=== PATIENT | female | born 1940 | race Caucasian/White ===

== ENCOUNTER → 2016-08-21 | Outpatient (CLI) | payer BC, OTHER ==
[~2016-08-21] MED LIST: EST5 PO; MULT-506 PO; RXC5 PO
--- NOTE | 2016-08-21 11:24 | DIAGNOSTIC IMAGING REPORT ---
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 FINDINGS: Ultrasonographic evaluation of the right abdominal wall with attention to the area of clinical concern was performed. This is performed both in the supine and standing positions. No hernia is visualized. It should be noted that CT scanning would be more sensitive for the detection of a spegelian hernia. IMPRESSION: No hernia is visualized ultrasonographically. Electronically signed by: Lb Garrett M.D. 08/21/2016 11:22 AM Dictated Date/Time: 08/21/2016 11:21 AM
== END | disposition home or self-care (01) ==
LOC: C.ULTR 10:30
PROVIDERS: ATTEND Surgery
DX: K46.9 Unspecified abdominal hernia without obstruction or gangrene (principal)

== ENCOUNTER → 2016-08-30 | Outpatient (CLI) | payer BC, OTHER ==
[~2016-08-30] MED LIST changes: +OPTIRAY 320 IV PRN
--- NOTE | 2016-08-30 14:58 | DIAGNOSTIC IMAGING REPORT ---
ABDOMEN AND PELVIS CT WITH IV AND ORAL CONTRAST CT DOSE: 371.64 mGy.cm HISTORY: Pain K46.9 Hernia Possible spigelian hernia.[id number] TECHNIQUE: Multiaxial CT images of the abdomen and pelvis were performed following the use of intravenous and oral contrast. COMPARISON STUDY: None. FINDINGS: The lung bases are clear. The liver, spleen, gallbladder, pancreas, kidneys, and adrenal glands are within normal limits. No bowel wall thickening or obstruction. The pelvic organs are unremarkable. No suspicious lytic or blastic osseous lesions. IMPRESSION: No significant abnormality identified within the abdomen or pelvis. Electronically signed by: Jassi Quiñonez M.D. 08/30/2016 2:57 PM Dictated Date/Time: 08/30/2016 2:53 PM
== END | disposition home or self-care (01) ==
LOC: C.CTS 14:07
PROVIDERS: ATTEND Physician Assistant
DX: K46.9 Unspecified abdominal hernia without obstruction or gangrene (principal)

== ENCOUNTER → 2016-09-19 | Outpatient (CLI) | payer BC, OTHER ==
[~2016-09-19] MED LIST changes: -OPTIRAY 320 IV PRN
--- NOTE | 2016-09-19 14:59 | DIAGNOSTIC IMAGING REPORT ---
RIGHT HIP UNILATERAL 2 VIEWS CLINICAL HISTORY: Significantly decreased range of motion of both hips. COMPARISON: CT of the abdomen and pelvis August 30, 2016. FINDINGS: Alignment of the right hip is anatomic. There is moderate to severe joint space narrowing of the right hip with extensive osteophytosis and subchondral sclerosis. There is no evidence for avascular necrosis. There is no fracture or suspicious lesion. IMPRESSION: Severe osteoarthritis of the right hip. Electronically signed by: Jim Tanner M.D. 09/19/2016 2:57 PM Dictated Date/Time: 09/19/2016 2:56 PM
--- NOTE | 2016-09-19 15:00 | DIAGNOSTIC IMAGING REPORT ---
LEFT HIP 2 VIEWS HISTORY: Left hip pain. COMPARISON: None. FINDINGS: There is no fracture or dislocation. Soft tissues are unremarkable. Moderate to severe cartilage space narrowing within the left hip. There are marginal osteophytes within the acetabulum and femoral head. There is associated subchondral sclerosis. IMPRESSION: Moderate to severe left hip osteoarthritis. No fractures. Electronically signed by: Kirby Wolff M.D. 09/19/2016 2:58 PM Dictated Date/Time: 09/19/2016 2:57 PM
== END | disposition home or self-care (01) ==
LOC: C.RAD 14:26
PROVIDERS: ATTEND Nurse Practitioner Family
DX: M25.651 Stiffness of right hip, not elsewhere classified (principal); M16.0 Bilateral primary osteoarthritis of hip

== ENCOUNTER → 2016-12-23 | Outpatient (CLI) | payer BC, OTHER ==
[~2016-12-23] MED LIST changes: -RXC5 PO
--- NOTE | 2016-12-23 12:07 | DIAGNOSTIC IMAGING REPORT ---
FLUOROSCOPICALLY GUIDED INTRA-ARTICULAR LEFT HIP STEROID AND ANESTHETIC INJECTION CLINICAL HISTORY: Left hip and knee pain COMPARISON STUDY: Outside radiograph dated 12/17/2016 FLUOROSCOPY TIME: 28 seconds. NUMBER OF FLUOROSCOPIC IMAGES: 1 FINDINGS: A timeout was performed. The risks the procedure were explained the patient informed consent was obtained. The patient was prepped and draped in sterile fashion. The skin was anesthetized with 1% lidocaine. Under fluoroscopic guidance, 20-gauge spinal needle was introduced into the joint capsule left hip. Intra-articular location was documented via the injection of Optiray 300. 2 cc of Celestone and 8 cc of Marcaine were instilled intra-articularly. IMPRESSION: 1. 2 cc of Celestone and 8 cc of Marcaine were intra-articular injected into the left hip. There were no immediate complications . Electronically signed by: Lb Garrett M.D. 12/23/2016 12:05 PM Dictated Date/Time: 12/23/2016 12:03 PM
== END | disposition home or self-care (01) ==
LOC: C.RADBC 11:04
PROVIDERS: ATTEND Orthopaedic Surgery
DX: M16.12 Unilateral primary osteoarthritis, left hip (principal)

== ENCOUNTER 2017-02-14 05:15 | Inpatient (IN) | payer BC, OTHER ==
[2017-01-23 13:20] VITALS: BMI 27.0
--- NOTE | 2017-01-23 13:53 | PAT Medication Instructions ---
Service Date Jan 23, 2017. Current Home Medication List Estradiol (Estradiol), 0.5 MG PO QAM Multivitamin (Multivitamin), 1 TAB PO DAILY Medication Instructions For Your Scheduled Surgery - Hold the following medications the morning of surgery: Multivitamin (Multivitamin), 1 TAB PO DAILY - Take the following medications the morning of surgery with a sip of water OTHERWISE NOTHING TO EAT OR DRINK AFTER MIDNIGHT: Estradiol (Estradiol), 0.5 MG PO QAM If you have any questions please call us at [phone] or [phone] or [phone]
[2017-01-23 14:35] LABS: BASO % 0.6 %; BASO ABS # 0.04 K/uL (0-0.2); COMPLETE YES; EOS % 5.9 %; HEMATOCRIT 42.2 % (37-47); IG% 0.3 %; LYMPH % 30.1 %; LYMPH ABS # 2.08 K/uL (1.2-3.4); MEAN CORPUSCULAR HEMOGLOBIN 30.4 pg (25-34); MEAN CORPUSCULAR HGB CONC 32.7 g/dl (32-36); MEAN PLATELET VOLUME 11.4 fL (7.4-10.4); MONO % 9.8 %; NEUT % 53.3 %; PLATELET COUNT 187 K/uL (130-400); RED BLOOD COUNT 4.54 M/uL (4.2-5.4); WHITE BLOOD COUNT 6.92 K/uL (4.8-10.8)
--- NOTE | 2017-01-23 14:39 | DIAGNOSTIC IMAGING REPORT ---
CHEST 2 VIEWS ROUTINE CLINICAL HISTORY: pat preoperative evaluation COMPARISON STUDY: 10/13/2015 FINDINGS: The bones soft tissues and hemidiaphragms are normal. The cardiomediastinal silhouette is normal. The lungs are clear. The pulmonary vasculature is normal. IMPRESSION: Negative chest. The above report was generated using voice recognition software. It may contain grammatical, syntax or spelling errors. Electronically signed by: Jassi Quiñonez M.D. 01/23/2017 2:37 PM Dictated Date/Time: 01/23/2017 2:37 PM
[2017-01-23 14:40] LABS: URINE APPEARANCE CLOUDY (CLEAR); URINE COLOR DK YELLOW; URINE EPITHELIAL CELL AUTO >30 /lpf (0-5); URINE NITRITE NEG (NEG); URINE SPECIFIC GRAVITY 1.031 (1.000-1.030); UROBILINOGEN NEG (NEG)
[2017-01-23 14:54] LABS: MANUAL MICROSCOPIC REQUIRED? NO; REVIEW REQ? YES; URINE BILIRUBIN NEG (NEG)
[2017-01-23 15:01] LABS: BUN/CREATININE RATIO 21.5 (10-20); CALCIUM 9.4 mg/dl (8.5-10.1); CREATININE 0.81 mg/dl (0.60-1.20); POTASSIUM 4.1 mmol/L (3.5-5.1)
--- NOTE | 2017-02-13 18:34 | HISTORY & PHYSICAL EXAMINATION ---
DATE OF ADMISSION: 02/14/2017 HISTORY AND PHYSICAL ADMISSION NOTE CHIEF COMPLAINT: Primary osteoarthritis of the left hip. HISTORY OF PRESENT ILLNESS: Tena is a pleasant 76-year-old female who presented to my office with complaints of left hip and groin pain. X-rays and clinical examination were diagnostic for primary osteoarthritis of the left hip. After failing extensive conservative treatment, she elected to proceed with a left total hip arthroplasty. PAST MEDICAL HISTORY: Essentially denies. PAST SURGICAL HISTORY: Significant for an appendectomy 45 years ago, hysterectomy 4 years ago and a hernia repair. ALLERGIES: PENICILLIN, ADVIL AND ALEVE. MEDICATIONS: Include estradiol 0.5 mg daily, and a women's multivitamin. FAMILY HISTORY: Noncontributory. SOCIAL HISTORY: She denies any tobacco, alcohol or IV drug use. She remains active. REVIEW OF SYSTEMS: She complains of left hip and groin pain. All other pertinent review of systems is negative. PHYSICAL EXAMINATION: GENERAL: She is awake, alert and oriented x3. She is in no apparent distress. She is very pleasant. HEENT: Pupils equal, round and reactive to light. Extraocular motion intact. Oral mucosa is pink and moist. HEART: Regular rate per radial pulse. LUNGS: Tamie symmetrically bilaterally with no audible breath sounds. ABDOMEN: Soft, nontender, nondistended. MUSCULOSKELETAL: On physical examination of her left hip, she has difficulty lying flat. I can flex her up to about 90 degrees and she has significant pain with forced internal and external rotation of her hip. Her leg lengths are essentially equal and she is neurovascularly intact. IMAGING DATA: X-rays of the left hip and pelvis do show advanced osteoarthritis of the left hip with joint space narrowing and osteophyte formation. IMPRESSION: Primary osteoarthritis of the left hip. PLAN: Will proceed with a Biomet taper lock left total hip arthroplasty. Postoperatively, she will be started on aspirin for DVT prophylaxis and kept in the hospital for postoperative medical management. She will likely be discharged to [facility]. LAMONT
[~2017-02-14] VITALS: Ht 175.3 cm; Wt 79.6 kg
[2017-02-14] VITALS (10 sets, daily range): BP systolic 107–138; BP diastolic 63–85; PULSE 66–78; TEMP 34.7–36.7; O2SAT 96–100; Ht 175.3 cm; Wt 79.6 kg
[2017-02-14] MEDS ORDERED: LACTATED RINGER'S 1000ML 1,000 ML IV SCH (06:00)
[2017-02-14] MEDS ORDERED: LACTATED RINGER'S 1000ML 500 ML IV ONE (06:00)
[2017-02-14] MEDS ORDERED: ROPIVACAINE 5MG/ML 30 ML 150 MG, BUPIVACAINE/EPINEPHR 0.5% MPF 30 ML, KETOROLAC TROMETH... INFIL SCH ×7 (06:00)
[2017-02-14] MEDS ORDERED: VANCOMYCIN INJ 1,250 MG in SODIUM CHLORIDE 0.9% 250ML 250 ML IV SCH ×2 (06:00→18:00)
[2017-02-14] MEDS ORDERED: GABAPENTIN 300 MG CAP PO SCH (06:00)
[2017-02-14] MEDS ORDERED: FAMOTIDINE 20 MG TAB PO SCH (06:00)
[2017-02-14] MEDS ORDERED: LACTATED RINGER'S 1000ML IV SCH (06:00)
[2017-02-14] MEDS ORDERED: ACETAMINOPHEN 500 MG TAB PO SCH (06:00)
[2017-02-14] MEDS ORDERED: BUPIVACAINE 0.5 % 5 MG/1 ML PF 10ML VIAL ONE (06:16)
[2017-02-14] MEDS: TRANEXAMIC ACID INJ 1,000 MG in SODIUM CHLORIDE 0.9% 100ML 100 ML IV SCH ×2 (06:30→06:53)
[2017-02-14] MEDS ORDERED: MIDAZOLAM HCL 1 MG/ML 2ML VIAL ONE (06:46)
--- NOTE | 2017-02-14 06:51 | History & Physical Bridge Note ---
H&P Re-Evaluation Bridge Note: I have examined the patient, reviewed the History & Physical and in the interval since the performance of the History & Physical I have noted the following changes of clinical significance: No changes noted
[2017-02-14] MEDS ORDERED: ORTHO JOINT ANESTHETIC ONE (07:05)
[2017-02-14] MEDS ORDERED: BACITRACIN 50000 UNIT VIAL ONE (07:05)
[2017-02-14] MEDS ORDERED: PROPOFOL IV EMULSION 10 MG/ML 20 ML VIAL IV ONE ×2 (07:54→08:52)
[2017-02-14] MEDS ORDERED: LIDOCAINE HCL 2% 2 ML VIAL (20MG/ML) ONE (07:54)
[2017-02-14] MEDS ORDERED: PHENYLEPHRINE HCL INJ 10 MG/ML VIAL ONE (07:54)
[2017-02-14] MEDS ORDERED: EpHEDrine SULFATE 50MG/5ML SYR ONE (08:04)
[2017-02-14] MEDS ORDERED: ALBUMIN HUMAN 5% 12.5 GM/250 ML VIAL IV ONE ×2 (08:22→09:04)
[2017-02-14] MEDS ORDERED: ONDANSETRON INJ 2 MG/ML 2 ML VIAL IV PRN ×2 (09:30→09:45)
[2017-02-14] MEDS ORDERED: PROMETHAZINE HCL INJ 12.5 MG in SODIUM CHLORIDE 0.9% 50ML 50 ML IV PRN (09:30)
[2017-02-14] MEDS ORDERED: NALOXONE HCL 0.4 MG/1 ML VIAL/CARP IV PRN (09:30)
[2017-02-14] MEDS ORDERED: FLUMAZENIL 0.1 MG/1 ML 10 ML VIAL IV PRN (09:30)
[2017-02-14] MEDS ORDERED: EpHEDrine SULFATE INJ 50 MG/ML AMP IV PRN (09:30)
[2017-02-14] MEDS ORDERED: ATROPINE SULFATE 0.1 MG/ML 5ML SYR IV PRN (09:30)
--- NOTE | 2017-02-14 09:36 | [facility] Post Operative Brief Note ---
Immediate Operative Summary Operative Date Feb 14, 2017. Pre-Operative Diagnosis Primary osteoarthritis of the left hip Post-Operative Diagnosis Primary osteoarthritis of the left hip Procedure(s) Performed Left Anterior Total Hip Arthroplasty Surgeon Dr. Jesus Eller Loss Prevention/Safety District Manager Surgeon(s) Ulices Bhatt PA-C Estimated Blood Loss 300cc Findings as above Specimens A. Left femoral head Complication(s) None Disposition Recovery Room / PACU
[2017-02-14] MEDS ORDERED: SILVER SULFADIAZINE 1% CR 50 GM JAR EXT PRN (09:45)
[2017-02-14] MEDS ORDERED: MoRPHine SULFATE 2 MG/ML CARP IV PRN (09:45)
[2017-02-14] MEDS ORDERED: OXYCODONE HCL IR 5 MG TAB (IMMEDIATE RELEASE) PO PRN (09:45)
[2017-02-14] MEDS ORDERED: METOCLOPRAMIDE HCL INJ 5 MG/ML 2 ML VIAL IV PRN (09:45)
[2017-02-14] MEDS ORDERED: BISACODYL 10 MG SUPP PR PRN (09:45)
[2017-02-14] MEDS ORDERED: MAGNESIUM HYDROXIDE SUSP 30 ML UDC PO PRN (09:45)
[2017-02-14] MEDS ORDERED: SOD PHOSPHATE/SOD BIPHOSPHATE ENEMA 132 ML BTL PR PRN (09:45)
--- NOTE | 2017-02-14 09:59 | OPERATIVE REPORT ---
DATE OF OPERATION: 02/14/2017 PREOPERATIVE DIAGNOSIS: Primary osteoarthritis of the left hip. POSTOPERATIVE DIAGNOSIS: Same. PROCEDURE: Left total hip arthroplasty. SURGEON: Dr. Jesus Eller. MACHINIST CLASS B: Stew Bhatt PA-C, whose assistance was necessary for positioning of the leg and helping with retraction and closure. ANESTHESIA: Spinal. COMPLICATIONS: None. CONDITION: Stable to PACU. IMPLANTS USED: I used a Biomet Taperloc total hip arthroplasty system with a size 50 G7 cup with a single 30-mm screw, a 50 G7 E1 neutral E-poly liner, size 12 high offset Taperloc stem and a 36 ceramic head with a -6 neck. INDICATIONS: Tena is a pleasant 76-year-old female who presented to my office with complaints of left groin and left knee pain. X-rays of the left hip and the knee showed severe osteoarthritis of the left hip and no arthritis of the left knee. She elected to proceed with a left total hip arthroplasty. DESCRIPTION OF PROCEDURE: On 02/14/2017, she arrived at [facility] for the above procedure. She was seen in the preoperative holding area and the operative extremity was identified and signed. She was given a preoperative antibiotic and a spinal anesthetic. She was taken back to the operating room, laid on the table in the supine position, and given basic sedation. The left hip was then brought out to a Purist leg positioner. The left hip was then prepped and draped in sterile fashion. Time-out was done and the patient and operative extremity was properly identified. An anterior approach was used. Dissection was taken down through the tensor and the tensor muscle was retracted laterally and the rectus was retracted medially. The capsule was then incised and tagged for later repair. The femoral neck was then resected and the femoral head was removed. The acetabulum was exposed. Time was spent doing a labral release. Sequential reaming up to a size 49 reamer was done. Reaming was done under fluoroscopy to ensure appropriate version. A size 50 pressfit cup was then impacted into place. A single 30-mm screw was placed and the E1 neutral poly liner was then snapped into place. The proximal femur was then exposed. Sequential broaching up to a size 13 broach was done. A standard head and neck assembly was applied and the hip was reduced. I was happy with the overall fit and length. The broach was removed. A size 13 implant was then impacted into place; however, I was unable to impact the final implant as far as I was able to get that broach, I felt I was going to split calcar if I kept going on any further. Decision was made to downsize to a size 12. A femoral stem was wasted and a size 12 Taperloc stem was then impacted into place. I was very happy with the fit of the smaller stem. Several different heads were trialed and a -6 seemed to be the best fit. The hip was reduced and fluoroscopic images showed anatomic alignment and protestant of leg lengths. The surrounding soft tissues were injected with 100 mL of an orthopedic pain control cocktail. The knee was then irrigated with 3 liters of normal saline solution with bacitracin. The capsule was then closed with #1 Vicryl and the drain was placed. Fascia was closed with #1 PDS and skin was closed with 2-0 Vicryl, 3-0 V-Loc suture and chong. She was then placed on a hospital bed and taken to the postanesthesia care unit in stable condition. She tolerated the procedure well. I attest to the content of the Intraoperative Record and any orders documented therein. Any exceptions are noted below. LAMONT
--- NOTE | 2017-02-14 10:55 | Anesthesiology Progress Note ---
Anesthesia Post Op Note Date & Time Feb 14, 2017 at 10:55 Vital Signs Pain Intensity: 0 Vital Signs Past 12 Hours Date Time Temp Pulse Resp B/P (MAP) Pulse Ox O2 Delivery O2 Flow Rate FiO2 02/14/17 10:45 124/70 02/14/17 10:43 72 21 100 02/14/17 10:43 72 21 02/14/17 10:41 116/67 02/14/17 10:38 71 16 100 02/14/17 10:38 72 16 02/14/17 10:36 121/68 02/14/17 10:33 69 19 100 02/14/17 10:33 69 19 02/14/17 10:31 123/68 02/14/17 10:28 69 18 02/14/17 10:28 69 18 100 02/14/17 10:27 66 19 100 02/14/17 10:27 66 19 02/14/17 10:26 115/65 02/14/17 10:22 68 18 02/14/17 10:22 68 18 100 02/14/17 10:21 119/66 02/14/17 10:17 69 20 02/14/17 10:17 71 20 100 02/14/17 10:16 120/58 02/14/17 10:13 64 18 100 02/14/17 10:13 64 18 02/14/17 10:11 117/68 02/14/17 10:08 63 24 100 02/14/17 10:08 64 24 02/14/17 10:06 96/63 02/14/17 10:03 64 23 02/14/17 10:03 63 23 100 02/14/17 10:01 113/64 02/14/17 09:58 64 17 02/14/17 09:58 84 17 100 02/14/17 09:56 113/64 02/14/17 09:53 23 02/14/17 09:53 36.4 73 20 123/70 97 Nasal Cannula 2 02/14/17 09:53 70 23 123/70 02/14/17 05:51 36.7 68 18 119/84 96 Room Air Notes Mental Status: alert / awake / arousable, participated in evaluation Pt Amnestic to Procedure: Yes Nausea / Vomiting: adequately controlled Pain: adequately controlled Airway Patency, RR, SpO2: stable & adequate BP & HR: stable & adequate Hydration State: stable & adequate Anesthetic Complications: no major complications apparent
--- NOTE | 2017-02-14 12:35 | DIAGNOSTIC IMAGING REPORT ---
L PELVIS/UNILATERAL HIP 1 VIEW HISTORY: 76 years-old Female IN PACU - A/P PELVIS and LATERAL HIP INCLUDING ALL OF IMPLANT status post left hip arthroplasty COMPARISON: left hip radiographs of same day at 7:22 AM TECHNIQUE: AP view the pelvis with frog-leg view of the left hip FINDINGS: Status post left hip arthroplasty with satisfactory alignment. Expected soft tissue swelling and deep tissue air is noted about the left hip. Skin chong are present with surgical drain. Moderate right hip and pubic symphysis degenerative changes. No acute fracture or dislocation. IMPRESSION: Status post left total hip arthroplasty without complication. The above report was generated using voice recognition software. It may contain grammatical, syntax or spelling errors. Electronically signed by: Arnav Matias M.D. 02/14/2017 12:34 PM Dictated Date/Time: 02/14/2017 10:22 AM
--- NOTE | 2017-02-14 12:52 | DIAGNOSTIC IMAGING REPORT ---
L HIP UNILATERAL 1 VIEW HISTORY: 76 years-old Female LT ANTERIOR TOTAL status post left hip arthroplasty COMPARISON: Pelvis and left hip radiographs of same day TECHNIQUE: 4 spot fluoroscopic images of the left hip were obtained utilizing 79.1 seconds fluoroscopy time FINDINGS: First image demonstrates acetabular component of left hip arthroplasty in satisfactory position with a single cannulated screw noted projected superiorly. There has been surgical resection of the femoral head and neck. Second through fourth images demonstrate the femoral stem of the arthroplasty in place with satisfactory alignment. No periprosthetic fracture identified. Expected soft tissue swelling and deep tissue air about the left hip. IMPRESSION: Fluoroscopic assistance as above. Please see operative report for further details. The above report was generated using voice recognition software. It may contain grammatical, syntax or spelling errors. Electronically signed by: Arnav Matias M.D. 02/14/2017 12:51 PM Dictated Date/Time: 02/14/2017 12:50 PM
[2017-02-14] MEDS: SODIUM CHLORIDE 0.9% 1000ML 1,000 ML IV SCH ×2 (13:10→21:18)
[2017-02-14] MEDS: ACETAMINOPHEN IV 1,000 MG in EMPTY BAG 0 ML IV SCH ×2 (15:21→23:58)
[2017-02-14] MEDS: DOCUSATE SODIUM 100 MG CAP PO SCH (21:18)
[2017-02-14] MEDS: SENNA 8.6 MG TAB PO SCH (21:18)
[2017-02-14] MEDS: ASPIRIN 325 MG ECTAB PO SCH (21:18)
--- NOTE | 2017-02-14 22:51 | Discharge Instructions ---
Discharge Instructions Date of Service Feb 14, 2017. Admission Reason for Admission: Left Hip Degenerative Joint Disease Discharge Discharge Diagnosis / Problem: Left Total Hip Discharge Goals Goal(s): Decrease discomfort, Improve function Activity Recommendations Activity Limitations: as noted below . Instructions / Follow-Up Instructions / Follow-Up Activity and Therapy Recommendations: * If you are using [facility] then Physical Therapy will be provided until they feel you are ready to start Outpatient Physical Therapy. If you are not using a Home Health agency then Outpatient Physical Therapy should start about 3-5 days from your day of surgery. Therapy will last about 3-6 weeks * You were shown a series of exercises in the hospital. Do these exercises three times each day including the exercises you were shown in physical therapy. * Get up and walk several times each day.~ For the first four weeks, try not to stand or walk for more than one hour at a time. If you do stand or walk for more than one hour, you will not hurt anything, but your leg will likely swell.~ ~ * As you feel comfortable, you may change from the walker or crutches to a cane and~then to independent walking. Medications: * Narcotic You will likely be sent home from the hospital with a prescription for the narcotic pain medication that worked best throughout your stay. * Aspirin Most patients will be required to take Aspirin 325mg twice a day for 6 weeks after surgery. This is obtained [id number] and a prescription is not necessary. * Other medications may be prescribed for specific circumstances. If you have any questions, please call the office at . * Resume previous home medications unless otherwise instructed TEDs/Elastic Stockings: The white elastic stockings help limit swelling and prevent blood clots from forming in your legs. The more you wear them, the more they work. Wear them for six weeks. Showering: You may shower 5 days from the day of surgery. Let the soapy shower water run over the chong. Do not scrub or soak the incision. Things To Watch For: * Drainage from the incision site that occurs more than one week after your surgery. * Increased redness at the incision site. * Fever above 102 degrees Fahrenheit. * Unusual chest pain or shortness of breath. * Call [facility] at with any of the above problems Follow-Up Visit: Follow-up with Dr. Eller 2-3 weeks after your day of surgery. An appointment was probably scheduled when you signed-up for surgery in the office. If you have any questions call Office Instructions: More detailed instructions as well as Frequently Asked Questions were provided in a folder by our office when you signed-up for surgery. Please review these instructions when you get home. If you have any further questions or concerns, please feel free to call the office at [phone] Current Hospital Diet Patient's current hospital diet: Regular Diet Discharge Diet Recommended Diet: Regular Diet Procedures Procedures Performed: Left Anterior Total Hip Arthroplasty Pending Studies Studies pending at discharge: no Medical Emergencies . Who to Call and When: Medical Emergencies: If at any time you feel your situation is an emergency, please call [phone] immediately. . Non-Emergent Contact Non-Emergency issues call your: Surgeon Call Non-Emergent contact if: wound has increased drainage, wound has increased redness (Aspirin 325 twice a day for 6 weeks) . "Provider Documentation" section prepared by Jesus Eller. . VTE Core Measure Inpt VTE Proph given/why not?: Other Anticoagulation (Aspirin 325 twice a day for 6 weeks)
[2017-02-15 03:05] VITALS: BP 118/67; PULSE 72; TEMP 36.5; O2SAT 96
[2017-02-15] MEDS: SODIUM CHLORIDE 0.9% 1000ML 1,000 ML IV SCH (07:08)
[2017-02-15 07:33] VITALS: BP 123/56; PULSE 81; TEMP 36.8; O2SAT 98
[2017-02-15 07:50] LABS: BASO % 0.3 %; BASO ABS # 0.03 K/uL (0-0.2); COMPLETE YES; EOS % 0.5 %; HEMATOCRIT 30.8 % (37-47); IG% 0.3 %; LYMPH % 13.9 %; LYMPH ABS # 1.65 K/uL (1.2-3.4); MEAN CELL VOLUME 91.9 fL (80-100); MEAN CORPUSCULAR HEMOGLOBIN 29.6 pg (25-34); MEAN CORPUSCULAR HGB CONC 32.1 g/dl (32-36); MEAN PLATELET VOLUME 11.4 fL (7.4-10.4); MONO % 8.3 %; NEUT % 76.7 %; PLATELET COUNT 129 K/uL (130-400); RED BLOOD COUNT 3.35 M/uL (4.2-5.4); WHITE BLOOD COUNT 11.91 K/uL (4.8-10.8)
[2017-02-15 08:14] LABS: BUN/CREATININE RATIO 18.3 (10-20); CALCIUM 8.2 mg/dl (8.5-10.1); CREATININE 0.6 mg/dl (0.60-1.20); POTASSIUM 3.9 mmol/L (3.5-5.1)
[2017-02-15] MEDS: ASPIRIN 325 MG ECTAB PO SCH ×2 (09:08→21:13)
[2017-02-15] MEDS: MULTIVITAMIN TAB PO SCH (09:08)
[2017-02-15] MEDS: ACETAMINOPHEN IV 1,000 MG in EMPTY BAG 0 ML IV SCH (09:08)
[2017-02-15] MEDS: ESTRADIOL 1 MG TAB PO SCH (09:08)
[2017-02-15] MEDS: DOCUSATE SODIUM 100 MG CAP PO SCH ×2 (09:08→21:00)
[2017-02-15] MEDS: PANTOprazole SOD 40 MG TAB PO SCH (09:09)
--- NOTE | 2017-02-15 10:04 | PROGRESS NOTE ---
DATE: 02/15/2017 CHIEF COMPLAINT: Status post left total hip arthroplasty, postop day #1 in progress. SUBJECTION: Tena was seen and examined at bedside today. Overall, she is doing very well. She said she has a very little pain in her left hip. She was up and ambulating last night and this morning. She has no complaints. PHYSICAL EXAMINATION: LEFT HIP: The dressing is clean and dry and the drain is to suction. Her leg lengths are essentially equal. She has good sensation on her quads. She has active dorsiflexion and plantarflexion of her left ankle. LABORATORY DATA: She has an H&H today of 9.9 and . Her glucose is 105. Her vital signs are all stable on room air. She is voiding on her own. X-rays postoperatively of the left hip showed the prosthesis to be in anatomical alignment without any evidence of fracture, dislocation or loosening. IMPRESSION: Status post left total hip arthroplasty, postop day #1. PLAN: At this point, she is doing very well and happy with the progress. She is on aspirin for DVT prophylaxis. Therapy will get her up and have her ambulating more today. Tomorrow morning, the nursing staff can change the dressing, pull the drain and she is looking for discharge to [facility].
[2017-02-15 11:39] VITALS: BP 100/56; PULSE 76; TEMP 36.8; O2SAT 98
[2017-02-15 16:06] VITALS: BP 103/58; PULSE 78; TEMP 36.7; O2SAT 96
[2017-02-15] MEDS: SENNA 8.6 MG TAB PO SCH (21:00)
[2017-02-15] MEDS: ACETAMINOPHEN 500 MG TAB PO SCH (21:13)
[2017-02-15 22:54] VITALS: BP 109/58; PULSE 77; TEMP 37.1; O2SAT 96
[2017-02-16] MEDS: ACETAMINOPHEN 500 MG TAB PO SCH ×2 (05:23→14:21)
[2017-02-16 07:09] VITALS: BP 142/67; PULSE 86; TEMP 36.8; O2SAT 92
[2017-02-16] MEDS: PANTOprazole SOD 40 MG TAB PO SCH (08:32)
[2017-02-16] MEDS: DOCUSATE SODIUM 100 MG CAP PO SCH (08:32)
[2017-02-16] MEDS: MULTIVITAMIN TAB PO SCH (08:32)
[2017-02-16] MEDS: ESTRADIOL 1 MG TAB PO SCH (08:33)
[2017-02-16] MEDS: ASPIRIN 325 MG ECTAB PO SCH (08:33)
[2017-02-16] MEDS ORDERED: RXC5 PO (09:46)
--- NOTE | 2017-02-16 09:58 | PROGRESS NOTE ---
DATE: 02/16/2017 CHIEF COMPLAINT: Status post left total hip arthroplasty, postop day #2. PROGRESS: Tena was seen and examined at bedside today. Overall, she is doing very well. She just finished with physical therapy. She has minimal pain in her left hip. She has no complaints. PHYSICAL EXAMINATION: LEFT HIP: The dressing has been changed and drain has been pulled. The incision is clean and dry. She has active dorsiflexion and plantarflexion of her left ankle. Her leg lengths are equal. IMPRESSION: Status post left total hip arthroplasty, postop day #2. PLAN: At this point, she is doing well. She is on aspirin for DVT prophylaxis. Her pain is well controlled. She is orthopedically stable for discharge to [facility] later today.
[2017-02-16 11:14] VITALS: BP 142/67; PULSE 86; O2SAT 92
[2017-02-16 11:45] VITALS: BP 142/67; PULSE 86; TEMP 36.8; O2SAT 92
--- NOTE | 2017-02-17 17:19 | DISCHARGE SUMMARY ---
DISCHARGE DIAGNOSIS: Primary osteoarthritis of the left hip. PROCEDURE: Left total hip arthroplasty on 02/14/[address] Jesus Eller. DISCHARGE INSTRUCTIONS: 1. Oxycodone 5-10 mg every 4 hours as needed for pain. 2. Aspirin 325 mg twice a day for DVT prophylaxis. 3. ESTEBAN hose stockings for 6 weeks. 4. Follow up with Dr. Eller in 2 weeks. 5. Call the office of Dr. Eller with any questions or concerns. HOSPITAL COURSE: Tena is a very pleasant 76-year-old female who presented to my office with complaints of chronic left hip and knee pain. X-rays and clinical examination were diagnostic for primary osteoarthritis of the left hip. After failing conservative treatment, she elected to undergo a left total hip arthroplasty. On 02/14/2017 she arrived at [facility] and underwent a left hip replacement without complications. She had a spinal anesthetic. Postoperatively, she was discharged to general orthopedic floors. Her hospital course was uneventful. On postop day #1, her H&H was stable at 9.9 and 30.8. She was up and ambulating well with physical therapy. She did not have much pain in the hip. On postop day #2, the nursing staff changed the dressing and pulled the drain. She continued to do very well. Her pain was controlled and she was ambulating well with physical therapy. She was subsequently discharged to [facility] with the above instructions.
== END 2017-02-16 15:01 | DRG 470 ==
LOC: C.ACU 05:15 → C.3E 06:30 → ENRESERV 10:06
PROVIDERS: ADMIT Orthopaedic Surgery; ATTEND Orthopaedic Surgery
PROC: 0SRB04Z Replacement of Left Hip Joint with Ceramic on Polyethylene Synthetic Substitute, Open Approach (ICD-10-PCS; principal; 2017-02-14 07:00)
DX: M16.12 Unilateral primary osteoarthritis, left hip (principal); Z88.0 Allergy status to penicillin

== ENCOUNTER 2017-09-06 11:41 | Emergency (ER) | payer OTHER, BC ==
[~2017-09-06] VITALS: Ht 175.3 cm; Wt 85.6 kg
[~2017-09-06 11:41] MED LIST changes: +RXC5 PO
[2017-09-06 11:45] VITALS: TEMP 36.5; Ht 175.3 cm; Wt 85.6 kg
[2017-09-06] MEDS ORDERED: ASPI81TA28 PO (11:58)
[2017-09-06] MEDS ORDERED: OPTIRAY 320 IV PRN (12:30)
[2017-09-06 12:50] LABS: BASO % 0.6 %; BASO ABS # 0.05 K/uL (0-0.2); EOS % 4.8 %; EOS ABS # 0.39 K/uL (0-0.5); HEMATOCRIT 41.2 % (37-47); HEMOGLOBIN 13.9 g/dL (12.0-16.0); IG# 0.02 K/uL (0.00-0.02); LYMPH % 22.5 %; LYMPH ABS # 1.84 K/uL (1.2-3.4); MEAN CELL VOLUME 90.7 fL (80-100); MEAN CORPUSCULAR HEMOGLOBIN 30.6 pg (25-34); MEAN CORPUSCULAR HGB CONC 33.7 g/dl (32-36); MEAN PLATELET VOLUME 10.9 fL (7.4-10.4); MONO % 10.8 %; MONO ABS # 0.88 K/uL (0.11-0.59); NEUT % 61.1 %; NEUT ABS # 4.98 K/uL (1.4-6.5); PLATELET COUNT 175 K/uL (130-400); RED CELL DISTRIBUTION WIDTH CV 12.9 % (11.5-14.5); RED CELL DISTRIBUTION WIDTH SD 43.2 fL (36.4-46.3); WHITE BLOOD COUNT 8.16 K/uL (4.8-10.8)
[2017-09-06 13:05] LABS: CALCIUM 8.7 mg/dl (8.5-10.1); CREATININE 0.84 mg/dl (0.60-1.20)
--- NOTE | 2017-09-06 14:09 | EMERGENCY ROOM VISIT NOTE ---
History Report prepared by Tamika: Wilmar Franco Under the Supervision of: Dr. Allen London M.D. First contact with patient: 12:04 Chief Complaint: FACIAL PAIN/INJURY Stated Complaint: SWOLLEN JAW,EAR,TONGUE,NECK History of Present Illness The patient is a 76 year old female with a history of a breast cyst who presents to the Emergency Room with complaints of persistent right-sided facial pain that started yesterday. She states that she noticed right-sided facial swelling after lunch yesterday, and she describes it as a "big egg of swelling" . The patient notes that overnight the swelling moved down the right side of her face and into her neck. The patient says that she feels swelling in her jaw , ear, tongue, and neck. She adds that she has right-sided facial pain which she rates as a 7 out of 10 in severity. The patient says that "everything hurts on the right side from the eyeball down to the bottom of the neck". She states that she took 1 Aspirin last night, and felt feverish last night. The patient says that she was unable to sleep last night due to the pain. She went to [employer] earlier today, and was referred here due to the swelling. The patient was afebrile at the office. She adds that she had her right lower molars done in a dentist office 3 weeks ago. Pt denies LOC, headache, diaphoresis, visual changes, chest pain, breathing difficulties, nausea, vomiting, abdominal pain, back pain, melena, hematochezia, urinary symptoms, numbness, weakness, rash, or other complaints. Source of History: patient Onset: Yesterday Position: other (right side of face) Symptom Intensity: 7/10 pain Quality: other (swelling) Timing: other (persistent) Associated Symptoms: + fevers ("felt feverish last night"), + neck pain Note: No other associated symptoms noted. Review of Systems See HPI for pertinent positives and negatives. A total of ten systems were reviewed and were otherwise negative. Past Medical & Surgical Medical Problems: (1) Breast cyst (2) Lyme disease (3) Osteoarthritis of left hip Surgical Problems: (1) History of appendectomy (2) History of hysterectomy (3) S/P hernia repair Family History Patient reports no known family medical history. Social History Smoking Status: Never Smoker Smokeless Tobacco Use: No Alcohol Use: none Marital Status: Housing Status: lives alone Current/Historical Medications Scheduled Aspirin (Aspirin Ec), 81 MG PO DAILY Clindamycin Hcl (Cleocin), 150 MG PO QID Estradiol (Estradiol), 0.5 MG PO QAM Multivitamin (Multivitamin), 1 TAB PO DAILY Allergies Coded Allergies: Penicillins (Verified Allergy, Unknown, HIVES, 09/06/17) NSAIDs (Unverified Adverse Reaction, Unknown, BLURRED VISION-ALEVE,ADVIL, 09/06/17) Physical Exam Vital Signs Date Time Temp Pulse Resp B/P (MAP) Pulse Ox O2 Delivery O2 Flow Rate FiO2 09/06/17 14:56 70 16 124/63 95 Room Air 09/06/17 11:45 36.5 78 18 128/78 96 Room Air Physical Exam GENERAL: Awake, alert, well-appearing, in no distress HENT: Normocephalic, atraumatic. Tenderness over the right lower jaw, swelling present there. Mild right submandibular swelling. Tongue and floor of mouth are normal. EYES: Normal conjunctiva. Sclera non-icteric. NECK: Tenderness right side of neck. Supple. No nuchal rigidity. FROM. No masses. RESPIRATORY: Clear to auscultation. No wheezes. No rales. Normal respiratory effort. CARDIAC: Normal rate. Normal rhythm. No murmurs. No rubs. Extremities warm and well perfused. Pulses equal. No JVD. GI: Soft, non-distended. No tenderness to palpation. No rebound or guarding. No masses. RECTAL: Deferred. MUSCULOSKELETAL: Atraumatic. Chest examination reveals no tenderness. The back is symmetrical on inspection without obvious abnormality. There is no CVA tenderness to palpation. No joint edema. LOWER EXTREMITIES: Calves are equal size bilaterally and non-tender. No edema. No discoloration. NEURO: Normal sensorium. No sensory or motor deficits noted. SKIN: No rash or jaundice noted. Medical Decision & Procedures ER Provider Diagnostic Interpretation: CT: Radiology results as stated below per my review and radiologist interpretation SOFT TISSUE NECK WITH HISTORY: 76 years-old Female Right facial pain, lower jaw swelling acute right-sided facial pain and swelling COMPARISON: None available TECHNIQUE: Multiple axial CT images of the soft tissues of the neck were obtained following the intravenous administration of 93 mL Optiray 320 IV contrast. A dose lowering technique was used consistent with the principals of ALARA. FINDINGS: Study is limited secondary to streak artifact from dental amalgam hardware. The right parotid gland is asymmetrically larger than the left demonstrates moderate degree of interstitial and periglandular inflammatory stranding. Mild inflammatory stranding tracks along the right development technical lead space and right platysma musculature. The left parotid gland, submandibular and sublingual glands appear unremarkable. Note is of parotid ductal dilation or obstructing sialolith. No drainable fluid collection or opaque foreign body. No pathologic adenopathy. Calcifications of the lingual tonsils. Airway is patent. The glottis and subglottic airway appears unremarkable. 4 mm low attenuating left thyroid nodule. Atherosclerosis of the bilateral carotid bulbs. No acute intracranial abnormality identified. 4 mm solid nodule of the left upper lobe, image 393 series 4. Mild biapical pleural-parenchymal scarring. Mastoid air cells are clear. Minimal mucosal thickening about the ethmoid air cells and maxillary sinuses. Multilevel degenerative changes about the cervical spine with kyphotic curvature of the mid cervical spine. IMPRESSION: 1. Moderate enlargement with interstitial and periglandular inflammatory stranding involving the right parotid gland is compatible with acute parotiditis without ductal dilation or obstructing sialolith identified. 2. No pathologic adenopathy or drainable fluid collection. 3. Additional findings as above. The above report was generated using voice recognition software. It may contain grammatical, syntax or spelling errors. Electronically signed by: Arnav Matias M.D. 09/06/2017 2:08 PM Dictated Date/Time: 09/06/2017 1:59 PM Laboratory Results 09/06/17 12:32 Red Blood Count 4.54, Mean Corpuscular Volume 90.7, Mean Corpuscular Hemoglobin 30.6, Mean Corpuscular Hemoglobin Concent 33.7, Mean Platelet Volume 10.9, Neutrophils (%) (Auto) 61.1, Lymphocytes (%) (Auto) 22.5, Monocytes (%) (Auto) 10.8, Eosinophils (%) (Auto) 4.8, Basophils (%) (Auto) 0.6, Neutrophils # (Auto ) 4.98, Lymphocytes # (Auto) 1.84, Monocytes # (Auto) 0.88, Eosinophils # (Auto ) 0.39, Basophils # (Auto) 0.05 09/06/17 12:32 Test 5/12/18 12:32 White Blood Count 8.16 K/uL (4.8-10.8) Red Blood Count 4.54 M/uL (4.2-5.4) Hemoglobin 13.9 g/dL (12.0-16.0) Hematocrit 41.2 % (37-47) Mean Corpuscular Volume 90.7 fL (80-100) Mean Corpuscular Hemoglobin 30.6 pg (25-34) Mean Corpuscular Hemoglobin Concent 33.7 g/dl (32-36) Platelet Count 175 K/uL (130-400) Mean Platelet Volume 10.9 fL (7.4-10.4) Neutrophils (%) (Auto) 61.1 % Lymphocytes (%) (Auto) 22.5 % Monocytes (%) (Auto) 10.8 % Eosinophils (%) (Auto) 4.8 % Basophils (%) (Auto) 0.6 % Neutrophils # (Auto) 4.98 K/uL (1.4-6.5) Lymphocytes # (Auto) 1.84 K/uL (1.2-3.4) Monocytes # (Auto) 0.88 K/uL (0.11-0.59) Eosinophils # (Auto) 0.39 K/uL (0-0.5) Basophils # (Auto) 0.05 K/uL (0-0.2) RDW Standard Deviation 43.2 fL (36.4-46.3) RDW Coefficient of Variation 12.9 % (11.5-14.5) Immature Granulocyte % (Auto) 0.2 % Immature Granulocyte # (Auto) 0.02 K/uL (0.00-0.02) Anion Gap 5.0 mmol/L (3-11) Est Creatinine Clear Calc Drug Dose 67.6 ml/min Estimated GFR () 78.8 Estimated GFR (Non- 68.0 BUN/Creatinine Ratio 18.9 (10-20) Calcium Level 8.7 mg/dl (8.5-10.1) Laboratory results reviewed by me Medications Administered Medications (Trade) Dose Ordered Sig/Tom Route Start Time Stop Time Status Last Admin Dose Admin Clindamycin HCl (Cleocin Cap) 150 mg ONE ONCE PO 09/06/17 14:45 09/06/17 14:46 DC 09/06/17 15:02 150 MG Acetaminophen (Tylenol Tab) 1,000 mg NOW STAT PO 09/06/17 14:41 09/06/17 14:42 DC 09/06/17 15:02 1,000 MG ED Course 1208: Past medical records reviewed. 1209: The patient was evaluated in room B10. A complete history and physical exam was performed. 1437: I reevaluated the patient and she is doing well. Discussed results and discharge instructions: she verbalized understanding and agreement. The patient is ready for discharge. 1441: Tylenol Tab 1000 mg PO. 1445: Cleocin Cap 150 mg PO. Medical Decision Prior records/ancillary studies reviewed. Triage Nursing notes reviewed and agree them. The patient's history was concerning for fever, chills, and right facial swelling. Differential diagnosis: Etiologies such as parotitis, sialoadenitis, lumps, mononucleosis, streptococcal pharyngitis, peritonsillar abscess, viral syndrome, retropharyngeal abscess, tonsillitis, otitis, pneumonia, influenza, as well as others were entertained. ER treatment provided: Patient declined analgesia. She drove herself to the ER. On reassessment the patient felt better. Diagnostics interpreted by me: The labs revealed an unremarkable CBC and chemistry panel. Imaging studies: CT scan as above The patient has parotitis. She is doing well at this point time. Blood work is unremarkable. There is no evidence of separate parotitis. She will be treated with oral clindamycin, warm compresses, and sialagogues. She will have a follow-up with her primary physician. If she worsens in any way she will be back. I gave my usual and customary discussion regarding this issue. By the evaluation outlined above other emergent etiologies such as those listed in the differential, as well as others, were deemed relatively unlikely. The patient was educated about the findings as listed above. All questions were answered and the patient was pleased with the treatment. Return instructions were outlined and the patient was discharged in stable condition. The patient was referred to her PCP for follow-up for a recheck of the current condition. Medication Reconcilliation Current Medication List: was personally reviewed by me Blood Pressure Screening Patient's blood pressure: Normal blood pressure Impression Primary Impression: Parotitis Scribe Attestation The scribe's documentation has been prepared under my direction and personally reviewed by me in its entirety. I confirm that the note above accurately reflects all work, treatment, procedures, and medical decision making performed by me. Departure Information Dispostion Home / Self-Care Prescriptions Clindamycin Hcl (CLEOCIN) 150 Mg Cap 150 MG PO QID, #39 CAP Prov: Allen London MD 09/06/17 Referrals Alem Cline (PCP) Patient Instructions ED Submandibular Gland Infec, [facility] Additional Instructions Clindamycin 150mg: Take two pills four times daily for 10 days for your infection. All antibiotics can cause diarrhea. If this occurs and you feel worse or it does not resolve in 1-2 days follow up with your doctor or return to the Emergency Department as this could be signs of serious underlying problems. Any medication can cause an allergic reaction, stop the pills immediately and return to the ER for rash, hives, breathing difficulties, or swelling. Tylenol: Take 1000 mg every 6 hours as needed for pain. Do not take more than 3000 mg in a 24 hour period. Warm compresses for 20 minutes at a time four times daily for 2-3 days. Sour candy every 2-3 hours to promote salivary production. Return to the ER immediately for spreading redness, fevers, pus-like drainage, severe pain, or as needed. Follow-up with your primary care physician in 2 to 3 days for a recheck of your current condition.
[2017-09-06] MEDS ORDERED: ACETAMINOPHEN 500 MG TAB PO STA (14:41)
[2017-09-06] MEDS ORDERED: CLIN150C PO (14:43)
[2017-09-06] MEDS ORDERED: CLINDAMYCIN HCL 150 MG CAP PO ONE (14:45)
[2017-09-06 14:56] VITALS: BP 124/63; PULSE 70; O2SAT 95
== END 2017-09-06 15:10 | disposition home or self-care (01) ==
LOC: C.EDB 11:44
DX: K11.20 Sialoadenitis, unspecified (principal); Z98.818 Other dental procedure status; Z86.19 Personal history of other infectious and parasitic diseases; M16.12 Unilateral primary osteoarthritis, left hip; Z90.710 Acquired absence of both cervix and uterus; Z79.82 Long term (current) use of aspirin; Z79.899 Other long term (current) drug therapy; Z88.0 Allergy status to penicillin; Z88.8 Allergy status to other drugs, medicaments and biological substances

== ENCOUNTER → 2017-11-24 | Outpatient (CLI) | payer OTHER, BC ==
[~2017-11-24] MED LIST changes: +ASPI81TA28 PO; +DOXY100T17 PO; -RXC5 PO
--- NOTE | 2017-11-25 15:22 | MAMMOGRAPHY REPORT ---
BILATERAL DIGITAL SCREENING MAMMOGRAM TOMOSYNTHESIS WITH CAD: 11/24/2017 CLINICAL HISTORY: Routine screening. Patient has no complaints. TECHNIQUE: The study was acquired using full field digital technology and interpreted from soft copy. Breast tomosynthesis in addition to standard 2D mammography was performed. Current study was also ev aluated with a Computer Aided Detection (CAD) system. COMPARISON: Comparison is made to exams dated: 02/10/2012 ultrasound, 02/10/2012 mammogram, 1 mammogram - [facility], 09/30/2008, and 09/30/2007. BREAST COMPOSITION: There are scattered areas of fibroglandular density in both breasts. FINDINGS: There are scattered benign rim calcifications and minimal vascular calcification in the kevin asts. Intramammary lymph nodes in each upper outer quadrant. No suspicious mass, architectural disto rtion or cluster of microcalcifications is seen. IMPRESSION: ACR BI-RADS CATEGORY 1: NEGATIVE There is no mammographic evidence of malignancy. A 1 year screening mammogram is recommended.( 019) The patient will receive written notification of the results. Some breast cancers are not detected with mammography. A negative mammographic report should not tonya y biopsy if a clinically suggestive mass is present. Nohemi Valencia M.D. ay/:11/24/2017 16:21:27 Art Critic: Danae Taylor, [facility] letter sent: Normal 1/2 BI-RADS Code: ACR BI-RADS Category 1: Negative
== END | disposition home or self-care (01) ==
LOC: C.MAMM 11:11
PROVIDERS: ATTEND Nurse Practitioner Family
DX: Z12.31 Encounter for screening mammogram for malignant neoplasm of breast (principal)

== ENCOUNTER 2018-12-21 09:16 | Inpatient (IN) ==
[2018-12-21 10:02] LABS: Basophils # (auto) 0.04 K/uL (0-0.2); Basophils % (auto) 0.6 %; Eosinophils # (auto) 0.25 K/uL (0-0.5); Eosinophils % (auto) 3.6 %; Hematocrit (blood only) 40.5 % (37-47); Hemoglobin 13.6 g/dL (12.0-16.0); Immature Granulocytes # (auto) 0.03 K/uL (0.00-0.02); Immature Granulocytes % (auto) 0.4 %; Lymphocytes # (auto) 1.27 K/uL (1.2-3.4); Lymphocytes % (auto) 18.2 %; Mean Corpuscular Hemoglobin 30.9 pg (25-34); Mean Corpuscular Hgb Conc 33.6 g/dL (32-36); Mean Platelet Volume 11.1 fL (7.4-10.4); Monocytes # (auto) 0.61 K/uL (0.11-0.59); Monocytes % (auto) 8.7 %; Neutrophils # (auto) 4.79 K/uL (1.4-6.5); Neutrophils % (auto) 68.5 %; Platelet Count 165 K/uL (130-400); RDW Coefficient of Variation 12.6 % (11.5-14.5); RDW Standard Deviation 42.8 fL (36.4-46.3); White Blood Count 6.99 K/uL (4.8-10.8)
--- NOTE | 2018-12-21 10:05 | XRay Report ---
XR chest 1V portable CLINICAL HISTORY: 78 years-old Female presenting with syncope. TECHNIQUE: Portable upright AP view of the chest was obtained. COMPARISON: 10/16/2017. FINDINGS: Atherosclerosis of the aortic arch. Cardiac silhouette normal in size. Lungs are hyperinflated. No fo manuel opacity. No pleural effusion or pneumothorax. Osseous structures normal. Upper abdomen normal. IMPRESSION: 1. Hyperinflation could suggest emphysema or other obstructive lung disease. No focal infiltrate to suggest pneumonia. Electronically signed by: Jeff Darling M.D. 12/21/2018 10:03 AM
--- NOTE | 2018-12-21 10:14 | CT Scan Report ---
CT head/brain wo con CLINICAL HISTORY: 78 years-old Female with syncope, [facility]. Acute syncope with head injury TECHNIQUE: Multiple axial CT images of the head were obtained without contrast. A dose lowering tech nique was utilized adhering to the principles of ALARA. CT DOSE: 537.48 mGy.cm COMPARISON: Head CT 10/13/2015. FINDINGS: No acute intracranial hemorrhage, midline shift, intracranial mass, hydrocephalus, territorial ischem ia or abnormal extra-axial collection. Mild age-related involutional changes. Patchy white matter hyp odensities are suggestive of mild chronic microvascular ischemic changes. Dense calcifications of the falx cerebri. The calvarium is intact. Mild mucosal thickening of the ethmoid air cells and maxillary sinuses with mild polypoid mucosal thickening of the medial right maxillary sinus. Mastoid air cells are clear. S oft tissues and orbits are within normal limits. IMPRESSION: No acute intracranial abnormality or calvarial fracture. The above report was generated using voice recognition software. It may contain grammatical, syntax o r spelling errors. Electronically signed by: Arnav Matias M.D. 12/21/2018 10:13 AM
[2018-12-21 10:18] LABS: Alanine Aminotransferase 31 U/L (12-78); Albumin Level 3.5 gm/dl (3.4-5.0); Aspartate Aminotransferase 24 U/L (15-37); BUN Creatinine Ratio 18.2 (10-20); Blood Urea Nitrogen 17 mg/dl (7-18); Calcium 9.2 mg/dl (8.5-10.1); Carbon Dioxide 31 mmol/L (21-32); Chloride 107 mmol/L (98-107); Est GFR (African American) 69.6; Est GFR (Non-African American) 60.1; Glucose 114 mg/dl (70-99); Magnesium 2.3 mg/dl (1.8-2.4); Potassium 4.4 mmol/L (3.5-5.1); Sodium 142 mmol/L (136-145)
[2018-12-21 10:29] LABS: Alkaline Phosphatase 76 U/L (45-117); Bilirubin,Total 1.8 mg/dl (0.2-1); Globulin 3.4 gm/dl (2.5-4.0); Total Protein 6.9 gm/dl (6.4-8.2); Troponin I < 0.015 ng/ml (0-0.045)
[2018-12-21 11:26] LABS: Appearance Urine Cloudy (Clear); Bacteria Urine Automated Negative (Negative); Bilirubin Urine Negative (Negative); Blood Urine Negative (Negative); Color Urine Yellow; Epithelial Cell Urine Auto >30 /lpf (0-5); Glucose Urine UA Negative (Negative); Ketones Urine Trace (Negative); Leukocyte Esterase Urine 1+ (Negative); Nitrite Urine Negative (Negative); Protein Urine Negative (Negative); RBC Urine Automated 0-4 /hpf (0-4); Specific Gravity Urine 1.022 (1.000-1.030); Urobilinogen Urine Negative (Negative); pH Urine 5.5 (4.5-7.5)
[2018-12-21] MEDS ORDERED: SODIUM CHLORIDE 0.9% 1000ML 500 ML IV ONE (11:46)
[2018-12-21] MEDS ORDERED: MECLIZINE 12.5 MG TAB PO STA (11:46)
[2018-12-21 14:03] LABS: Lyme Ab IgG w/WB Rflx Negative (Negative)
[2018-12-21 14:07] LABS: Lyme Ab IgM w/WB Rflx Equivocal (Negative)
--- NOTE | 2018-12-21 15:44 | History & Physical Report ---
Date of Service December 21, 2018 Assessment & Plan (1) Syncope: Hx of same with prior lyme dx Lyme screen neg with one band a equivocal + CT head: neg for acute CXR neg for PNA UA as noted below, may have contributed ECHO, MRI, carotid US pending Tele monitor CBC, PRP, TSH WNL Trop neg x1, serials pending If workup is neg, may consider tx of lyme given hx and high risk for exposure (2) Abnormal urine: Neg for UTI sx + leuk est, neg nitrites Urine cx pending (3) DVT prophylaxis: SCDs History of Present Illness Primary Care Provider: Alem Cline 78 y/o F c/o syncope. Pt states she had a usual day for herself yesterday. 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 She was busy with activities there and it was esdras. She came home and took a shower and went to bed without issue. She ate without issue. Pt states she generally wakes up about 3 times a night to urinate. She did last night at 11:30p, 330a, 530a and each time noted that she felt "like my brain was cloudy and I couldn't walk a straight line". She also noted feeling dizzy and lightheaded. She was able to fall back asleep each time. She woke at 715a and still did not feel her usual. 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 She got up to get orange juice out of the refrigerator and her next memory is hearing the refrigerator door alarm going off as she had not closed the door. Her daughter states that the alarm on her own refrigerator goes off if the door is open for more than 4 minutes, but it is uncertain if the pt's door is set the same way. She noted that she had thrown up during this episode. She had managed to dial her son at some time during all of this and he alerted her daughter who alerted her neighbor, who is former EMS. Neighbor brought pt to the ED. Prior to neighbor arriving, pt could not stand up. She had to crawl to the banister and use that to stand, which she states was still a struggle to get to her feet. Pt states that she has had other syncopal episodes in the past. Twice have been related to Lyme's disease. Twice were under very stressful conditions, one of which when her was undergoing tx at [facility] for pancreatic cancer. She has had a rash on her neck for about 2 weeks. She thought it was heat rash. No recent bites that she is aware of, but she has never noted a tick bite with her other lyme dx. One of those episodes did have a bull's eye rash, one did not. Pt denies fever, SOB, chest pain, abd pain, n/c/d, LE pain or swelling, urinary burning or urgency. Currently, pt feels that her vision is cloudy still. She was OOB to the bathroom and feels that her walking is improving, but still not its usual. Allergies Allergy/AdvReac Type Severity Reaction Status Date / Time Penicillins Allergy Unknown HIVES Verified 12/21/18 10:23 NSAIDS (Non-Steroidal AdvReac Unknown BLURRED Unverified 12/21/18 10:23 Anti-Inflamma VISION-ALEVE,ADVIL Home Medications Home Medications Medication Instructions Recorded Confirmed Type multivitamin 2 tab PO DAILY 12/21/18 12/21/18 History Past Med/Surg History Medical History Breast cyst (Chronic) "left, removed" Drowsiness (Acute) Hepatitis (Acute) Osteoarthritis of left hip Weakness (Acute) Surgical History History of hysterectomy (Chronic) S/P hernia repair (Chronic) History of appendectomy (Chronic) Family History Mother Myocardial infarction Father TIA (transient ischemic attack) never confirmed that this was TIA vs CVA Other Family history non-contributory Social History Feels Safe at Home: Yes Smoking Status: Never smoker Hx Alcohol Use: No Hx Substance Use: No Review of Systems Review of Systems: Pertinent positives and negatives reviewed in HPI--all others negative Physical Exam Constitutional: WD/WN, vitals as above Eyes: normal visual larson by confrontation and + anicteric sclerae Neck: normal visual inspection and trachea midline Respiratory: normal respiratory effort, lungs clear to auscultation Cardiovascular: Rate/Rhythm: regular rate and regular rhythm Gastrointestinal (Abdomen): Inspection/Auscultation: abdomen not distended Percussion/Palpation: abdomen soft; abdomen nontender Musculoskeletal: Head/Neck/Chest: normocephalic and head atraumatic negative for edema, peripheral pulses intact Skin: no rashes, warm and dry Neurologic: CN's II-XI intact bilaterally and awake; not confused Speech / Cognition: normal 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 5/5 b/l = LE strength against resistance b/l Psychiatric: A+Ox3, euthymic affect Results & Data Vital Signs (Past 12 Hours) Vital Signs Temp Pulse Pulse Resp BP BP Pulse Ox 12/21/18 15:00 69 20 113/68 96 12/21/18 13:58 75 20 139/87 96 12/21/18 12:42 73 20 158/85 H 98 12/21/18 11:54 66 20 126/69 96 12/21/18 10:16 64 18 131/92 96 12/21/18 09:41 97 12/21/18 09:19 36.6 C 72 20 134/[address] head: neg for acute CXR: neg for acute ECG Rhythm: normal sinus Code Status & VTE Plan Code Status Full code VTE Prophylaxis Plan VTE Prophylaxis will be ordered: Yes PG Care Time/CCT Total # of Minutes Spent Total Time Spent with Patient: Total time spent is greater than 50% in coordination of care (as documented) at patient's floor/unit and/or counseling patient: (1) Syncope Syncope type: unspecified Qualified Code(s): R55 - Syncope and collapse
--- NOTE | 2018-12-21 16:06 | Emergency Department Note ---
Entered by Tyler Rodriguez acting as a scribe for Tarah Wayne MD History of Present Illness General Chief complaint: Syncope (Near Syncope) Stated complaint: PASSED OUT, DIZZY Time Seen by Provider: 12/21/18 09:29 Source: patient History of Present Illness Provider complaint: Syncope Onset (ago): hour(s) (This morning) Location: head Pain Consistency: + other (Episodic) Maximum Pain Intensity: 0 Relieved By: + none Exacerbated By: + none Associated symptoms: + nausea/vomiting and + other (Positive dizziness); no chest pain, no headaches and no shortness of breath The patient is a 78 year old female who presents to the Emergency Room with complaints of a syncopal episode that occurred this morning shortly before arrival. The patient notes she woke up this morning around 02:00 feeling dizzy and nauseous making it hard for her to walk in a straight line. The patient then woke up later on in the morning and had a syncopal episode while standing in the kitchen. She mentioned that she does not have any headache but she believes she did hit her head. Shortly after the syncopal episode, the patient took her vitamins but vomited them up almost immediately after. 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 The patient denies any chest pain or shortness of breath. She denies smoking or alcohol use. The patient has a history of Lymes disease and hyperlipidemia. Home Medications Home Medications Medication Instructions Recorded Confirmed Type multivitamin 2 tab PO DAILY 12/21/18 12/21/18 History Allergies Allergy/AdvReac Type Severity Reaction Status Date / Time Penicillins Allergy Unknown HIVES Verified 12/21/18 10:23 NSAIDS (Non-Steroidal AdvReac Unknown BLURRED Unverified 12/21/18 10:23 Anti-Inflamma VISION-ALEVE,ADVIL Past Med/Surg History Medical History Breast cyst (Chronic) "left, removed" Drowsiness (Acute) Hepatitis (Acute) Osteoarthritis of left hip Weakness (Acute) Surgical History History of hysterectomy (Chronic) S/P hernia repair (Chronic) History of appendectomy (Chronic) Family History Mother Myocardial infarction Father TIA (transient ischemic attack) never confirmed that this was TIA vs CVA Other Family history non-contributory Social History Preferred Language: Lithuanian Communication Ability: Effective Wedding Planner Required: No Beliefs That Will Affect Care: None Current Living Situation: Alone Feels Safe at Home: Yes Smoking Status: Never smoker Hx Alcohol Use: No Hx Substance Use: No Review of Systems See HPI for pertinent positives & negatives. and A total of 10 systems reviewed and were otherwise negative Physical Exam Vital Signs Vital Signs - 24 hr 12/21/18 09:19 12/21/18 09:36 12/21/18 09:41 Temperature 36.6 C Temperature Source Oral Sepsis Recent Fever Within 48 Hours No Sepsis Action Taken by Nursing No Action Required Pulse Rate - Lying 63 Pulse Rate - Sitting 69 Pulse Rate - Standing 81 Pulse Rate 72 Pulse Rate [Left Finger] Pulse Rhythm [Left Finger] Pulse Strength [Left Finger] Respiratory Rate 20 Respiratory Effort / Characteristics Respiratory Depth Respiratory Pattern Blood Pressure - Lying 129/81 Blood Pressure - Sitting 143/95 H Blood Pressure- Standing 145/94 H Blood Pressure 134/81 Blood Pressure [Left Arm] Blood Pressure Mean 98 Blood Pressure Mean [Left Arm] Pulse Oximetry 95 97 Oxygen Delivery Method Room Air 12/21/18 10:16 12/21/18 11:54 12/21/18 12:42 Temperature Temperature Source Sepsis Recent Fever Within 48 Hours Sepsis Action Taken by Nursing Pulse Rate - Lying Pulse Rate - Sitting Pulse Rate - Standing Pulse Rate Pulse Rate [Left Finger] 64 66 73 Pulse Rhythm [Left Finger] Pulse Strength [Left Finger] Respiratory Rate 18 20 20 Respiratory Effort / Characteristics Respiratory Depth Respiratory Pattern Blood Pressure - Lying Blood Pressure - Sitting Blood Pressure- Standing Blood Pressure Blood Pressure [Left Arm] 131/92 126/69 158/85 H Blood Pressure Mean Blood Pressure Mean [Left Arm] 105 88 109 Pulse Oximetry 96 96 98 Oxygen Delivery Method Room Air Room Air Room Air 12/21/18 13:58 12/21/18 15:00 12/21/18 15:30 Temperature Temperature Source Sepsis Recent Fever Within 48 Hours Sepsis Action Taken by Nursing Pulse Rate - Lying Pulse Rate - Sitting Pulse Rate - Standing Pulse Rate Pulse Rate [Left Finger] 75 69 71 Pulse Rhythm [Left Finger] Regular Pulse Strength [Left Finger] Normal Respiratory Rate 20 20 20 Respiratory Effort / Characteristics Non-Labored Respiratory Depth Normal Respiratory Pattern Regular Blood Pressure - Lying Blood Pressure - Sitting Blood Pressure- Standing Blood Pressure Blood Pressure [Left Arm] 139/87 113/68 118/74 Blood Pressure Mean Blood Pressure Mean [Left Arm] 104 83 88 Pulse Oximetry 96 96 96 Oxygen Delivery Method Room Air Room Air Room Air Vital signs reviewed. General: Elderly, well-appearing 78 year old female, in no significant distress. HEENT: No scleral icterus, PERRLA, neck supple. Atraumatic. Cardiovascular: Regular rate and rhythm, no extra sounds. Pulmonary: Clear to auscultation bilaterally, normal work of breathing. Abdomen: Soft, nontender, nondistended, positive bowel sounds. Musculoskeletal: Atraumatic, no peripheral edema. Nontender C spine. Neurologic: Patient awake alert and oriented x 3, full strength in all 4 extremities. Cranial nerves 2 through 12 grossly intact. No appreciable nystagmus. Equal strength. Skin: Warm and dry. Erythematous rash limited to the clavicular region bilaterally. Course 0936: Past medical records reviewed. The patient was evaluated in room B12B, and a complete history and physical examination were performed. 1145: I reevaluated the patient and she is resting comfortably in bed. 1330: I checked on the patient and she is still not feeling like she is at baseline. We discussed the treatment plan and she agreed. 1429: I spoke to Dr. Cook [facility] Hospitalist about the patient's case. She will be accepting the patient for further evaluation. Consultations Consultation #1: I spoke to Dr. Cook [facility] Hospitalist about the patient's case. She will be accepting the patient for further evaluation. Time: 14:29 Administered Medications Multivitamins (Multivitamin Tab) 1 tab PO [facility]; Protocol Stop: 01/21/19 08:59 Last Admin: 12/22/18 08:28 Dose: 1 tab Documented by: [id number] Discontinued Medications Sodium Chloride (Nss 1000ml) 500 mls @ 999 mls/hr IV .Q31M ONE Stop: 12/21/18 12:16 Last Infusion: 12/21/18 12:40 Dose: 0 mls/hr Documented by: [id number] Admin: 12/21/18 11:55 Dose: 999 mls/hr Documented by: [id number] Meclizine HCl (Antivert) 12.5 mg PO NOW STA Stop: 12/21/18 11:47 Last Admin: 12/21/18 11:58 Dose: 12.5 mg Documented by: [id number] Medical Decision Making Differential Diagnosis Differential diagnosis includes etiologies such as vasovagal event, infection, hypoglycemia, electrolyte abnormalities, cardiac sources, intracerebral event, toxicologic, neurologic, as well as others were entertained. Medical Records Attestation: I reviewed the patient's medical records. Home Medications Current Medication List: was personally reviewed by me Laboratory Data Attestation: I reviewed the patient's lab results. Result diagrams: 12/21/18 09:49 12/21/18 09:49 Lab Results 12/21/18 12/21/18 12/21/18 Range/Units 09:49 09:49 11:10 WBC 6.99 (4.8-10.8) K/uL RBC 4.40 (4.2-5.4) M/uL Hgb 13.6 (12.0-16.0) g/dL Hct 40.5 (37-47) % MCV 92.0 (80-100) fL MCH 30.9 (25-34) pg MCHC 33.6 (32-36) g/dL RDW Std Deviation 42.8 (36.4-46.3) fL RDW Coeff of Sánchez 12.6 (11.5-14.5) % Plt Count 165 (130-400) K/uL MPV 11.1 H (7.4-10.4) fL Immature Gran % (Auto) 0.4 % Neut % (Auto) 68.5 % Lymph % (Auto) 18.2 % [place] % (Auto) 8.7 % Eos % (Auto) 3.6 % Baso % (Auto) 0.6 % Immature Gran # (Auto) 0.03 H (0.00-0.02) K/uL Neut # (Auto) 4.79 (1.4-6.5) K/uL Lymph # (Auto) 1.27 (1.2-3.4) K/uL [place] # (Auto) 0.61 H (0.11-0.59) K/uL Eos # (Auto) 0.25 (0-0.5) K/uL Baso # (Auto) 0.04 (0-0.2) K/uL Sodium 142 (136-145) mmol/L Potassium 4.4 (3.5-5.1) mmol/L Chloride 107 (98-107) mmol/L Carbon Dioxide 31 (21-32) mmol/L Anion Gap 3.0 (3-11) BUN 17 (7-18) mg/dl Creatinine 0.92 (0.6-1.2) mg/dl Est Cr Clr Drug Dosing Not Reportable Est GFR ( Amer) 69.6 Est GFR (Non-Af Amer) 60.1 BUN/Creatinine Ratio 18.2 (10-20) Glucose 114 H (70-99) mg/dl Calcium 9.2 (8.5-10.1) mg/dl Magnesium 2.3 (1.8-2.4) mg/dl Total Bilirubin 1.8 H (0.2-1) mg/dl AST 24 (15-37) U/L ALT 31 (12-78) U/L Alkaline Phosphatase 76 (45-117) U/L Troponin I < 0.015 (0-0.045) ng/ml Total Protein 6.9 (6.4-8.2) gm/dl Albumin 3.5 (3.4-5.0) gm/dl Globulin 3.4 (2.5-4.0) gm/dl Albumin/Globulin Ratio 1.0 (0.9-2) TSH 2.330 (0.300-4.500) uIu/ml Urine Color Yellow Urine Appearance Cloudy A (Clear) Urine pH 5.5 (4.5-7.5) Ur Specific Roper 1.022 (1.000-1.030) Urine Protein Negative (Negative) Urine Glucose (UA) Negative (Negative) Urine Ketones Trace H (Negative) Urine Blood Negative (Negative) Urine Nitrite Negative (Negative) Urine Bilirubin Negative (Negative) Urine Urobilinogen Negative (Negative) Ur Leukocyte Esterase 1+ H (Negative) Urine WBC (Auto) 10-30 H (0-5) /hpf Urine RBC (Auto) 0-4 (0-4) /hpf U Hyaline Cast (Auto) 5-10 H (0-5) /lpf U Epithel Cells (Auto) >30 H (0-5) /lpf Urine Bacteria (Auto) Negative (Negative) Lyme Disease IgG Ab (Negative) Lyme Disease IgM Ab (Negative) 12/21/18 Range/Units 13:03 WBC (4.8-10.8) K/uL RBC (4.2-5.4) M/uL Hgb (12.0-16.0) g/dL Hct (37-47) % MCV (80-100) fL MCH (25-34) pg MCHC (32-36) g/dL RDW Std Deviation (36.4-46.3) fL RDW Coeff of Sánchez (11.5-14.5) % Plt Count (130-400) K/uL MPV (7.4-10.4) fL Immature Gran % (Auto) % Neut % (Auto) % Lymph % (Auto) % [place] % (Auto) % Eos % (Auto) % Baso % (Auto) % Immature Gran # (Auto) (0.00-0.02) K/uL Neut # (Auto) (1.4-6.5) K/uL Lymph # (Auto) (1.2-3.4) K/uL [place] # (Auto) (0.11-0.59) K/uL Eos # (Auto) (0-0.5) K/uL Baso # (Auto) (0-0.2) K/uL Sodium (136-145) mmol/L Potassium (3.5-5.1) mmol/L Chloride (98-107) mmol/L Carbon Dioxide (21-32) mmol/L Anion Gap (3-11) BUN (7-18) mg/dl Creatinine (0.6-1.2) mg/dl Est Cr Clr Drug Dosing Est GFR ( Amer) Est GFR (Non-Af Amer) BUN/Creatinine Ratio (10-20) Glucose (70-99) mg/dl Calcium (8.5-10.1) mg/dl Magnesium (1.8-2.4) mg/dl Total Bilirubin (0.2-1) mg/dl AST (15-37) U/L ALT (12-78) U/L Alkaline Phosphatase (45-117) U/L Troponin I (0-0.045) ng/ml Total Protein (6.4-8.2) gm/dl Albumin (3.4-5.0) gm/dl Globulin (2.5-4.0) gm/dl Albumin/Globulin Ratio (0.9-2) TSH (0.300-4.500) uIu/ml Urine Color Urine Appearance (Clear) Urine pH (4.5-7.5) Ur Specific Roper (1.000-1.030) Urine Protein (Negative) Urine Glucose (UA) (Negative) Urine Ketones (Negative) Urine Blood (Negative) Urine Nitrite (Negative) Urine Bilirubin (Negative) Urine Urobilinogen (Negative) Ur Leukocyte Esterase (Negative) Urine WBC (Auto) (0-5) /hpf Urine RBC (Auto) (0-4) /hpf U Hyaline Cast (Auto) (0-5) /lpf U Epithel Cells (Auto) (0-5) /lpf Urine Bacteria (Auto) (Negative) Lyme Disease IgG Ab Negative (Negative) Lyme Disease IgM Ab Equivocal A (Negative) Imaging Data Radiologist's Impression: Radiology results as stated below per my review and the radiologist's interpretation: XR chest 1V portable CLINICAL HISTORY: 78 years-old Female presenting with syncope. TECHNIQUE: Portable upright AP view of the chest was obtained. COMPARISON: 10/16/2017. FINDINGS: Atherosclerosis of the aortic arch. Cardiac silhouette normal in size. Lungs are hyperinflated. No focal opacity. No pleural effusion or pneumothorax. Osseous structures normal. Upper abdomen normal. IMPRESSION: 1. Hyperinflation could suggest emphysema or other obstructive lung disease. No focal infiltrate to suggest pneumonia. Electronically signed by: Jeff Darling M.D. 12/21/2018 10:[address] head/brain wo con CLINICAL HISTORY: 78 years-old Female with syncope, [facility]. Acute syncope with head injury TECHNIQUE: Multiple axial CT images of the head were obtained without contrast. A dose lowering technique was utilized adhering to the principles of ALARA. CT DOSE: 537.48 mGy.cm COMPARISON: Head CT 10/13/2015. FINDINGS: No acute intracranial hemorrhage, midline shift, intracranial mass, hydrocephalus, territorial ischemia or abnormal extra-axial collection. Mild age-related involutional changes. Patchy white matter hypodensities are suggestive of mild chronic microvascular ischemic changes. Dense calcifications of the falx cerebri. The calvarium is intact. Mild mucosal thickening of the ethmoid air cells and maxillary sinuses with mild polypoid mucosal thickening of the medial right maxillary sinus. Mastoid air cells are clear. Soft tissues and orbits are within normal limits. IMPRESSION: No acute intracranial abnormality or calvarial fracture. The above report was generated using voice recognition software. It may contain grammatical, syntax or spelling errors. Electronically signed by: Arnav Matias M.D. 12/21/2018 10:13 AM ECG Data Attestation: I personally reviewed and interpreted this ECG as follows: Indication: syncope Rate (beats per minute): 63 Rhythm: normal sinus Findings: + other (QTC of 440); no PAC, no PVC, no acute ischemic change and no ectopy Blood Pressure Blood Pressure Findings: Normal blood pressure MDM Narrative This patient was evaluated and appeared to be in no significant distress. IV access was obtained and laboratory work was drawn. Patient was placed on the disability liaison officer and EKG was performed. The patient is found to be in a sinus rhythm without acute abnormality. Telemetry reveals no ectopy. Laboratory work is fairly reassuring. Patient's troponin is normal. Electrolytes are normal. Patient was hydrated with normal saline solution and given p.o. meclizine. Patient expressed concern over a new Lyme infection as last time she was diagnosed she had a similar syncopal episode. It is unclear what the etiology of the patient's event was in the kitchen however the vertigo she is experiencing now does not explain the syncope she had earlier. Patient lives at home alone and in a remote area, she will be evaluated by the hospitalist service for further management. Impression & Plan Syncope, Vertigo Discharge Plan Visit Data *Final* Discharge Date/Time: 12/21/18 16:41 Chief Complaint: Syncope (Near Syncope) Stated Complaint: PASSED OUT, DIZZY ED Provider: Tarah Wayne Discharge Problem: Syncope, Vertigo Patient Disposition: Admitted As Inpatient Discharge Instructions Interventions: ED Discharge Assessment Last Done: 12/21/18 16:41 The scribe's documentation has been prepared under my direction and personally reviewed by me in its entirety. I confirm that the note above accurately reflects all work, treatment, procedures, and medical decision making performed by me.
[2018-12-21] MEDS ORDERED: ACETAMINOPHEN 325 MG TAB PO PRN (17:13)
[2018-12-21] MEDS ORDERED: MAGNESIUM HYDROXIDE SUSP 30 ML UDC PO PRN (17:13)
[2018-12-21] MEDS ORDERED: ONDANSETRON INJ 2 MG/ML 2 ML VIAL IV PRN (17:13)
--- NOTE | 2018-12-21 18:50 | Ultrasound Report ---
US carotid doppler BI HISTORY: Mental status change syncope COMPARISON: None. TECHNIQUE: Real-time, grayscale, and color Doppler sonography of the carotid arteries was performed. Imaging reviewed in the transverse and longitudinal planes. All measurements were calculated based on NASCET criteria. FINDINGS: Antegrade flow is seen in the bilateral vertebral arteries. The brachial pressures are hemodynamically similar. The peak systolic velocity within the right ICA is 75. The right systolic ratio is 0.8. The peak systolic velocity within the left ICA is 96. The left systolic ratio is 0.9. IMPRESSION: No hemodynamically significant stenosis seen within the carotid arteries. The above report was generated using voice recognition software. It may contain grammatical, syntax or spelling errors. Electronically signed by: Jassi Quiñonez M.D. 12/21/2018 6:49 PM
--- NOTE | 2018-12-21 19:06 | Magnetic Resonance Report ---
MR brain wo con HISTORY: Mental status change syncope TECHNIQUE: Multiplanar multisequence MRI of the brain was performed without the use of contrast. COMPARISON STUDY: CT same date FINDINGS: There are no areas of restricted diffusion to suggest acute infarction. The midline structu res are intact. The paranasal sinuses are clear. The mastoid air cells are clear. The ventricles and sulci are within normal limits for age. There is no mass, hematoma, midline shift. The major vascular flow-voids at the skull base are well maintained. Minimal age-related atrophy and chronic small vess el change IMPRESSION: No acute intracranial abnormality. Minimal age-related atrophy and chronic small vessel change The above report was generated using voice recognition software. It may contain grammatical, syntax or spelling errors. Electronically signed by: Jassi Quiñonez M.D. 12/21/2018 7:05 PM
[2018-12-22] MEDS ORDERED: MULTIVITAMIN TAB PO SCH (09:00)
--- NOTE | 2018-12-22 16:45 | Discharge Summary ---
Date of Service December 22, 2018 Admission HPI Per Admitting Provider 78 y/o F c/o syncope. Pt states she had a usual day for herself yesterday. 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 She was busy with activities there and it was esdras. She came home and took a shower and went to bed without issue. She ate without issue. Pt states she generally wakes up about 3 times a night to urinate. She did last night at 11:30p, 330a, 530a and each time noted that she felt "like my brain was cloudy and I couldn't walk a straight line". She also noted feeling dizzy and lightheaded. She was able to fall back asleep each time. She woke at 715a and still did not feel her usual. 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 She got up to get orange juice out of the refrigerator and her next memory is hearing the refrigerator door alarm going off as she had not closed the door. Her daughter states that the alarm on her own refrigerator goes off if the door is open for more than 4 minutes, but it is uncertain if the pt's door is set the same way. She noted that she had thrown up during this episode. She had managed to dial her son at some time during all of this and he alerted her daughter who alerted her neighbor, who is former EMS. Neighbor brought pt to the ED. Prior to neighbor arriving, pt could not stand up. She had to crawl to the banister and use that to stand, which she states was still a struggle to get to her feet. Pt states that she has had other syncopal episodes in the past. Twice have been related to Lyme's disease. Twice were under very stressful conditions, one of which when her was undergoing tx at [facility] for pancreatic cancer. She has had a rash on her neck for about 2 weeks. She thought it was heat rash. No recent bites that she is aware of, but she has never noted a tick bite with her other lyme dx. One of those episodes did have a bull's eye rash, one did not. Pt denies fever, SOB, chest pain, abd pain, n/c/d, LE pain or swelling, urinary burning or urgency. Currently, pt feels that her vision is cloudy still. She was OOB to the bathroom and feels that her walking is improving, but still not its usual. Principal Diagnosis Syncope Discharge Exam Constitutional WD/WN, vitals as above Eyes PERRL, conjunctivae normal, anicteric sclerae ENMT external ear and nose normal, oropharynx normal Neck trachea midline, no thyromegaly Respiratory normal respiratory effort, lungs clear to auscultation Cardiovascular RRR, no murmur, no edema Gastrointestinal (Abdomen) normal bowel sounds, soft, nontender, no hepatosplenomegaly Musculoskeletal Extremities: extremities normal to inspection; no cyanosis and no clubbing Skin no rashes, warm and dry Neurologic moves all extremities and awake; no focal motor deficits Psychiatric A+Ox3, euthymic affect Discharge Data Allergies Allergy/AdvReac Type Severity Reaction Status Date / Time Penicillins Allergy Unknown HIVES Verified 12/21/18 10:23 NSAIDS (Non-Steroidal AdvReac Unknown BLURRED Unverified 12/21/18 10:23 Anti-Inflamma VISION-ALEVE,ADVIL Consultations None Procedures Performed Echocardiogram-normal Ordered Studies 12/21/18 09:47 CT head/brain wo con Stat 12/21/18 17:13 MR brain wo con Stat US carotid doppler BI Stat CXR Hospital Course (1) Syncope: Has had 3 episodes of syncope in the last 3 years, each time seemed to be related to a diagnosis of Lyme disease for which she was treated. She was outside in the heat all day long the day prior to this episode and spec gravity in UA high indicating dehydration, however BMP within normal limits, CBC ok. Lyme IgM equivocal but I find it hard to believe Lyme disease would make her have syncope. MRI brain, CT head, and carotid US all normal here except mild chronic ischemic changes on brain. Tele normal, ECHO normal. ECG normal, serial troponins neg x 3 TSH normal CXR negative UA appears contaminated and she has no urinary symptoms at all, no tx needed for UTI Recommend 2 week event monitor for arrhythmias and f/u with PCP Stable for discharge to home -advised to stay well hydrated in the heat. -have PCP f/u on Lyme WB and if positive, would treat. Pt declines empiric treatment with doxy at this time (2) Abnormal urine: Neg for UTI sx + leuk est, neg nitrites Urine cx pending at discharge No indication for antibiotics Stable for dc to home (3) DVT prophylaxis: SCDs Total Time Total Time Spent Total Time Spent (In Minutes): >30 min Total Time Includes: Examination of the Patient, Discharge Planning and Medication Reconciliation Discharge Plan Discharge Items Patient Disposition: Home - Self-Care Reason For Visit: SYNCOPE Discharge Diagnosis: Syncope Condition: Good Discharge Goals: Diagnostic testing, Improve disease control, Learn about illness and Therapeutic intervention Activity: Resume your previous activity Bathing: No limitations Driving/Machine Use: Resume 3 days after discharge Weightbearing: Full weightbearing Non-emergency contact: Primary Care Provider Call non-emergency contact if: you have any medication questions and your symptoms worsen Follow-up/Referrals: Alem Cline [Primary Care Provider] - 12/30/18 9:10 am (Please, follow up at SERGE Cline's office with her associate, Pau VALENTINE, on FridayDecember 30 at 9:10 am. *If you need to change this appointment, call the office at [phone]. *A CARDIAC EVENT MONITOR WILL BE MAILED TO YOUR HOME. THE PACKAGE WILL INCLUDE EASY TO FOLLOW INSTRUCTIONS. THE RESULTS WILL BE SENT TO [facility].) Diet: Regular Addtl Provider Instructions: You were admitted after you passed out. It is unclear why you passed out, but it may have been from mild dehydration. Your Lyme disease test was borderline positive; the confirmatory test will take approximately one week to come back and your PCP can follow up on this result. Please drink plenty of fluids each day to stay hydrated. Furthermore, a test to look for abnormal rhythms of the heart has been arranged for you. This is called a cardiac event monitor. The monitor will be mailed to you and you can place it on your body as per the instructions. Your doctor can tell you the results of this test after it is completed. Please follow up with your PCP as scheduled for you. Prescriptions: Continued multivitamin Tablet,Chewable 2 tab PO DAILY RF: 0 Stand-Alone Forms: [employer] Discharge Orders: Discharge Order (Routine); Ordered 12/22/18 Ordered By: Sharon Urrutia Admission Data Admit Date/Time: 12/21/18 15:31 Attending Provider: Sharon Urrutia Admit Provider: Jeanette Cook Primary Care Provider: Alem Cline Service: Telemetry Other Interventions: Discharge Summary Assessment (RN) Last Done: 12/22/18 16:59 Pending Studies at Discharge: Yes (Lyme Disease Western Blot) DC Date/Time DO NOT enter until pt leaves facility: 12/22/18 18:09
[2018-12-30 10:57] LABS: 18KDIGG Band NONREACTIVE (NONREACTIVE); 23KDIGG Band NONREACTIVE (NONREACTIVE); 23KDIGM Band REACTIVE (NONREACTIVE); 28KDIGG Band NONREACTIVE (NONREACTIVE); 30KDIGG Band NONREACTIVE (NONREACTIVE); 39KDIGG Band NONREACTIVE (NONREACTIVE); 39KDIGM Band NONREACTIVE (NONREACTIVE); 41KDIGG Band REACTIVE (NONREACTIVE); 41KDIGM Band NONREACTIVE (NONREACTIVE); 45KDIGG Band NONREACTIVE (NONREACTIVE); 58KDIGG Band NONREACTIVE (NONREACTIVE); 66KDIGG Band NONREACTIVE (NONREACTIVE); 93KDIGG Band NONREACTIVE (NONREACTIVE); Lyme Antibodies, WB IgG NEGATIVE (NEGATIVE); Lyme Antibodies, WB IgM NEGATIVE (NEGATIVE)
--- NOTE | 2018-12-31 06:29 | Coding Query ---
CODING QUERY To promote full compliance with coding requirements relating to patient care, provider participation is requested in all cases of orthodontic band maker uncertainty. Please assist us with the question(s) below: Coding Question(s): Syncope is documented in the record. Please clarify below, in your clinical opinion regarding the most likely etiology of the syncope. ( ) Syncope with unknown likely etiology ( x ) Syncope most likely from Dehydration ( ) Syncope most likely from Arrhythmias ( ) Syncope most likely from possible Lyme Disease ( ) Syncope most likely from Other: Please Specify Physician's Response(s): Thank you Piper Ross Principal Diagnosis: "that condition established after study, to be chiefly responsible for occasioning the admission of the patient to the hospital for care." Co-Existing Principal Diagnosis: "when two or more diagnoses equally meet the criteria for principal diagnosis as determined by the circumstances of admission, diagnostic work up, and/or therapy provided, and the Alphabetic Index, Tabular List, or another coding guideline does not provide sequencing direction, any one of the diagnoses may be sequenced first." "When the physician has documented what appears to be a current diagnosis in the body of the record, but has not included the diagnosis in the final diagnostic statement, the physician should be asked whether the diagnosis should be added." (Source Coding [facility] 2 QTR90. p3-4) [facility]
== END 2018-12-22 18:09 | disposition home or self-care (01) | DRG 641 ==
LOC: ED 09:16 → SUATTDRO 15:31 → 2E 15:31

== ENCOUNTER 2020-09-11 08:07 | Inpatient (IN) ==
--- NOTE | 2020-09-07 13:24 | Anesthesiology Consultation ---
Date of Service September 07, 2020 Assessment & Plan (1) Encounter for pre-operative examination: COVID Status: As of 09/05 PAT pot firer, patient denies known exposure/sick contacts, or symptoms of COVID19. She did fly to [place] with her daughter earlier this month-- went to restaurants, went to [place] for 2 days. Reports she wore a mask "all the time." Returned 08/29/20. Preoperative COVID19 testing completed on 09/07 (9 days after high-risk travel), results currently pending. Chart Review Chart Review: Acceptable Risk for Surgery and Patient NOT seen in Pre Admission Testing History Surgery Operation Date: 09/11/20 10:00 Proposed Procedures p Right Breast Lumpectomy with Needle Localization - Tyler Jean MD, FACS Height/Weight Height: 5 ft 8.5 in Weight: 81.647 kg Allergies Allergy/AdvReac Type Severity Reaction Status Date / Time Penicillins Allergy Intermediate HIVES Verified 09/05/20 15:38 adhesive AdvReac Intermediate SKIN Verified 09/05/20 15:38 IRRITATION NSAIDS (Non-Steroidal AdvReac Mild BLURRED Verified 09/05/20 15:38 Anti-Inflamma VISION-ALEVE,ADVIL Medications Home Medications Medication Instructions Recorded Confirmed Last Taken Centrum Chewables 2 tab PO QAM 10/23/19 09/05/20 06/30/20 Calcium 600 with Vitamin D3 2 tab PO QAM 06/30/20 09/05/20 06/30/20 albuterol sulfate [Ventolin HFA] 2 inh INHALATION Q6H PRN #8.5 g 07/02/20 09/05/20 Unknown codeine-guaifenesin 5 ml PO Q6H PRN #120 ml 07/02/20 09/05/20 Unknown Past Medical History Medical History (Updated 09/07/20 @ 13:37 by Elie Ralph) Acute hypoxemic respiratory failure 06/30/20 to [facility] ED. [place] 2/2 viral illness. Discharged to home with steroid taper and ABX Breast cyst "left, removed" Bronchitis VIRAL BRONCHITIS -06/2020, resolved. Has not needed home albuterol. Cardiac murmur HX. No murmur noted on discharge exam 07/02/20 [facility]. Lump or mass in breast Osteoarthritis of left hip Postmenopausal status Prolapse of female pelvic organs Sebaceous cyst Vaginitis Past Family History Family History Mother Myocardial infarction Father TIA (transient ischemic attack) never confirmed that this was TIA vs CVA Cancer Grandmother Heart disease Other Family history non-contributory Denies family history of Ovarian cancer Prostate cancer Breast cancer Colorectal cancer Past Surgical History Surgical History History of appendectomy History of colonoscopy X 2 History of hysterectomy supracervical hyst/bso/sacrocolpexy/perineorrhaphy - per Dr Gaona's note in allscripts, done 12/09, [place] [facility] [place] History of total hip arthroplasty LEFT 2018 S/P hernia repair incisional hernia Dr. [place] Social History Smoking Status: Never smoker Do You Dip or Chew Tobacco: No Hx Alcohol Use: No Alcohol type: wine alcohol intake frequency: holidays/special occasions only Hx Substance Use: No Lab Results Anesthesia Preop Results Results Anesthesia Widget: WBC 5.08 K/uL (4.8-10.8) 09/07/20 Hgb 14.0 g/dL (12.0-16.0) 09/07/20 Hct 42.1 % (37-47) 09/07/20 Plt 186 K/uL (130-400) 09/07/20 Na 141 mmol/L (136-145) 09/07/20 K 4.0 mmol/L (3.5-5.1) 09/07/20 Cl 108 mmol/L (98-107) H 09/07/20 CO2 30 mmol/L (21-32) 09/07/20 BUN 12 mg/dl (7-18) 09/07/20 Creat 0.82 mg/dl (0.6-1.2) 09/07/20 Glucose Level 150 mg/dl (70-99) H 09/07/20 Testing Electrocardiogram Date: 06/30/20 Findings: + NSR @ (96bpm) Possible LAE. Chest X-Ray Date: 06/30/20 IMPRESSION: No acute cardiopulmonary findings. No change in appearance of the chest.
[~2020-09-11 08:07] MED LIST changes: -ASPI81TA28 PO; +CLINDAMYCIN 900 MG in DEXTROSE 5% 50 ML IV SCH; -DOXY100T17 PO; -EST5 PO; +LR 15ML/HR IV SCH; -MULT-506 PO
[2020-09-11] MEDS ORDERED: MIDAZOLAM HCL 1 MG/ML 2ML VIAL ONE (08:30)
[2020-09-11] MEDS ORDERED: fentaNYL citrate 100 MCG/2 ML VIAL ONE (08:30)
--- NOTE | 2020-09-11 09:40 | History & Physical Bridge Note ---
Date of Service September 11, 2020 History & Physical Bridge Note I have examined the patient, reviewed the History & Physical and in the interval since the performance of the History & Physical I have noted the following changes of clinical significance: no changes noted
[2020-09-11] MEDS ORDERED: ATROPINE SULFATE 0.1 MG/ML 10ML SYR IV PRN (10:06)
[2020-09-11] MEDS ORDERED: ePHEDrine sulfate 50 MG/ML AMP IV PRN (10:06)
[2020-09-11] MEDS ORDERED: ONDANSETRON INJ 2 MG/ML 2 ML VIAL IV PRN ×2 (10:06→12:26)
[2020-09-11] MEDS ORDERED: fentaNYL citrate 100 MCG/2 ML VIAL IV PRN (10:06)
[2020-09-11] MEDS ORDERED: HYDROmorphone INJ 2 MG/ML SYR/VIAL IV PRN (10:06)
[2020-09-11] MEDS ORDERED: BUPIVACAINE 0.25% 30 ML VIAL ONE (10:18)
[2020-09-11] MEDS ORDERED: METHYLENE BLUE 0.5% 10 ML VIAL ONE (10:25)
[2020-09-11] MEDS ORDERED: DEXAMETHASONE SOD INJ 4 MG/ML VIAL ONE (10:51)
[2020-09-11] MEDS ORDERED: LIDOCAINE HCL 2% 2 ML VIAL/AMP(20MG/ML) INFIL ONE (10:51)
[2020-09-11] MEDS ORDERED: ONDANSETRON INJ 2 MG/ML 2 ML VIAL ONE (10:51)
[2020-09-11] MEDS ORDERED: PROPOFOL IV EMULSION 10 MG/ML 20 ML VIAL IV ONE (10:51)
--- NOTE | 2020-09-11 11:10 | Post Operative Brief Note ---
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 Additional Medial inferior tissue, plain suture anterior, silk suture inferior, methylene blue rajat mahoney c. Additional inferior tissue, methylene Blue rajat mahoney
[2020-09-11] MEDS ORDERED: ACETAMINOPHEN 1,000 MG/100 ML VIAL IV ONE (11:12)
[2020-09-11] MEDS ORDERED: ACETAMINOPHEN 325 MG TAB PO PRN (12:26)
[2020-09-11] MEDS ORDERED: SODIUM CHLORIDE 0.9% 1000ML 1,000 ML IV SCH (12:26)
[2020-09-11] MEDS ORDERED: PROMETHAZINE HCL 12.5 MG in SODIUM CHLORIDE 0.9% 50 ML IV PRN (12:26)
[2020-09-11] MEDS ORDERED: oxyCODONE HCL IR 5 MG TAB (IMMEDIATE RELEASE) PO PRN (12:26)
[2020-09-11] MEDS ORDERED: MoRPHine SULFATE 2 MG/ML CARP IV PRN (12:26)
--- NOTE | 2020-09-11 12:32 | Anesthesiology Progress Note ---
Date of Service September 11, 2020 Anesthesia Post Procedure Vital Signs Vital Signs: Temp Pulse Pulse Resp BP Pulse Ox 09/11/20 12:00 36.5 C 63 16 143/77 H 100 09/11/20 11:50 63 16 146/85 H 100 09/11/20 11:40 67 19 124/82 100 09/11/20 11:30 62 16 145/87 H 100 09/11/20 11:20 65 16 142/87 H 100 09/11/20 11:14 36.3 C L 72 16 158/89 H 100 09/11/20 09:18 36.8 C 84 18 127/82 97 Transfer of Care Handoff Completed per policy Notes Mental Status: alert / awake / arousable and participated in evaluation Patient Amnestic to Procedure: Yes Nausea / Vomiting: adequately controlled Pain: adequately controlled Airway Patency, RR, SpO2: stable & adequate BP & HR: stable & adequate Hydration State: stable & adequate Anesthetic Complications: no major complications apparent and Pt Satisfied with anesthetic care
--- NOTE | 2020-09-11 12:48 | Hospitalist Consultation ---
Date of Consultation September 11, 2020 Assessment & Plan (1) DCIS (ductal carcinoma in situ): Patient underwent right breast lumpectomy needle localization for ductal carcinoma in situ on 09/11/[address] Jean. Will manage pain control postoperatively (2) Bronchitis: She had a viral bronchitis that was not Covid in June 2020 she was prescribed a albuterol inhaler afterwards but is never used it. Otherwise her typical home medications include calcium and vitamins. History of Present Illness Attending Physician: Tyler Jean MD, FACS Patient underwent right breast lumpectomy with needle localization for ductal carcinoma in situ by Dr. Tyler Jean on 09/11/2020. Patient was recovering well in the room when I saw her. She is having good pain control of her right alyce st. She is having no other medical problems. Allergies Allergy/AdvReac Type Severity Reaction Status Date / Time Penicillins Allergy Intermediate HIVES Verified 09/11/20 09:09 adhesive AdvReac Intermediate SKIN Verified 09/11/20 09:09 IRRITATION NSAIDS (Non-Steroidal AdvReac Mild BLURRED Verified 09/11/20 09:09 Anti-Inflamma VISION-ALEVE,ADVIL Home Medications Medication Instructions Recorded Confirmed Type Centrum Chewables 2 tab PO QAM 10/23/19 09/11/20 History Calcium 600 with Vitamin D3 2 tab PO QAM 06/30/20 09/11/20 History albuterol sulfate [Ventolin HFA] 2 inh INHALATION Q6H PRN #8.5 g 07/02/20 09/11/20 Rx codeine-guaifenesin 5 ml PO Q6H PRN #120 ml 07/02/20 09/11/20 Rx Patient History Medical History (Updated 09/11/20 @ 12:46 by Giovanni Joel MD) Acute hypoxemic respiratory failure 06/30/[address] [facility] ED. [place] 2/2 viral illness. Discharged to home with steroid taper and ABX Breast cyst "left, removed" Bronchitis VIRAL BRONCHITIS -06/2020, resolved. Has not needed home albuterol. Cardiac murmur HX. No murmur noted on discharge exam 07/02/20 [facility]. Lump or mass in breast Osteoarthritis of left hip Postmenopausal status Prolapse of female pelvic organs Sebaceous cyst Vaginitis Surgical History History of appendectomy History of colonoscopy X 2 History of hysterectomy supracervical hyst/bso/sacrocolpexy/perineorrhaphy - per Dr Gaona's note in allscripts, done 12/09, Dr YESENIA Zamora, [facility] [place] 11/[place] History of total hip arthroplasty LEFT 2018 S/P hernia repair incisional hernia Dr. [place] Family History Mother Myocardial infarction Father TIA (transient ischemic attack) never confirmed that this was TIA vs CVA Cancer Grandmother Heart disease Other Family history non-contributory Denies family history of Ovarian cancer Prostate cancer Breast cancer Colorectal cancer Social History Smoking Status: Never smoker Second Hand Exposure: Yes; Do You Dip or Chew Tobacco: No; Hx Alcohol Use: No Hx Substance Use: No Preferred Language: Kyrgyz Communication Ability: Effective Visual Impairment: No Limitations Hearing Ability: Normal Wood Casket Maker Required: No Beliefs That Will Affect Care: None marital status: / Current Living Situation: Alone Current Living Situation Comment: Widowedx 5 years, closest child works at [employer]. Lives in 2 story log current occupational status: retired How many Children do You have: 4 How many Children do You have Comment: 2 girls, 2 boys Other Information That Helps Us Care for You: No Feels Safe at Home: Yes Safety Concerns: Feels Safe At This Time Dental Care, Regularly: Yes Physical Activity Frequency: Daily Physical Activity Frequency Comment: Gardening Assistive Devices: None Review of Systems Review of Systems: Mild distress and fatigue no headache, blurry or double vision no speech or swallowing issues Right breast chest wall pain,, no pressure or palpitations no shortness of breath, cough or wheezes no abdominal pain, nausea or vomiting, diarrhea or constipation no dysuria, hematuria or frequency no focal joint pain or swelling no back pain, CVA tenderness or radicular pain no bruising, bleeding or rashes no focal signs of weakness or numbness or altered sensation no complaints of anxiety or depression.. Physical Exam Physical Exam: The patient appeared well nourished and normally developed. Vital signs as documented. Head exam is normocephalic atraumatic Neck is without JVD, thyromegaly, or carotid bruits. Lungs are clear to auscultation, no focal loss of breath sounds Cardiac exam, Rhythm is regular.. No murmurs, rubs or gallops. Right chest is dressed with a elastic bandage there is no overt fluctuance tenderness and no drainage Abdominal exam reveals normal bowel sounds, soft non tender, no masses Extremities are nonedematous and both pedal pulses are present Neurologic exam is alert and oriented, no focal loss of strength or sensation Skin is without bruises or rashes Psychologically is without concerns for anxiety or depression Results & Data Results & Data ([facility]) Vital Signs (Past 12 Hours) Vital Signs Temp Pulse Pulse Resp BP Pulse Ox 09/11/20 12:00 97.7 F 63 16 143/77 H 100 09/11/20 11:50 63 16 146/85 H 100 09/11/20 11:40 67 19 124/82 100 09/11/20 11:30 62 16 145/87 H 100 09/11/20 11:20 65 16 142/87 H 100 09/11/20 11:14 97.3 F L 72 16 158/89 H 100 09/11/20 09:18 98.2 F 84 18 127/82 97 PG Care Time/CCT Total # of Minutes Spent Total Time Spent with Patient: Total time spent is greater than 50% in coordination of care (as documented) at patient's floor/unit and/or counseling patient: Coding Level of Care Code 50704 Inpt Consult Level 2 Diagnoses DCIS (ductal carcinoma in situ) D05.10 Bronchitis J40
--- NOTE | 2020-09-11 14:37 | Mammography Report ---
NEEDLE LOCALIZATION RIGHT BREAST: 09/11/2020 CLINICAL HISTORY: 79-year-old woman with recent biopsy-proven DCIS in the 9:00 posterior right breast . She presents for preoperative needle and wire localization prior to lumpectomy. COMPARISON: Comparison is made to exams dated: 08/18/2020 mammogram, 08/22/2020 stereotactic biopsy, mammogram, 11/24/2017 mammogram, 02/10/2012 ultrasound, and 02/10/2012 mammogram - [facility]. PATIENT CONSENT: After explaining the risks, benefits and alternatives of the procedure to the geovanny greenberg, informed consent was obtained both verbally and in writing. Specific risks include: Bleeding, inf ection, puncture of adjacent structure, nontarget localization, sampling error, dizziness/lightheaded ness and medication reaction. A timeout was performed and the right breast was confirmed as the site for preoperative needle and wire localization. PROCEDURE DESCRIPTION: Prior right breast imaging was reviewed including: Right breast stereotactic/t omosynthesis guided biopsy and post procedure mammograms dated 08/22/2020 and the residual right breas t calcifications in a linear distribution as well as the hourglass shaped biopsy marker placed after stereotactic biopsy are the intended targets for localization. With the patient in the seated positi on, the right breast was placed in lateralmedial compression. Tomosynthesis editing clerk views were obtain ed to center both the hourglass-shaped biopsy marker and residual grouped calcifications within the t argeting window of an alphanumeric grid. The hourglass shaped biopsy marker was localized separately given that it was displaced from the residual calcifications on the post procedure mammograms. The skin of the lateral right breast was cleansed with alcohol. 1% buffered Lidocaine without epinephrin e was administered as local anesthesia in 2 locations. A 7.5cm Fajardo II needle and wire combination was inserted into the right breast targeting the calcifications. A 3.0 cm Fajardo II needle and wir e combination were inserted into the right breast via a lateral approach targeting the biopsy clip. Optimal positioning was confirmed and both wires were locked in place. The entire procedure includin g approach and needle lengths were discussed with the operating surgeon prior to surgery. The geovanny greenberg tolerated the procedure well and there was no immediate complication. She was driven to the [facility] in satisfactory condition. A specimen radiograph was obtained which demonstrates both the localizing needles/wires, the hourglas s shaped biopsy marker adjacent to the shoulder needle and numerous faint microcalcifications adjacen t to the longer needle, compatible with successful preoperative localization and subsequent surgical excision. The operating surgeon reported he took additional tissue along the deep aspect of the long needle, which was not radiographed. IMPRESSION: NEEDLE LOCALIZATION Status post right breast preoperative needle and wire localization for biopsy-proven DCIS at 9:00 pos terior depth. The imaged specimen includes the intended abnormalities. Final surgical pathology is pending. Nohemi Valencia M.D. ay/:09/11/2020 13:48:05 Attending Technologist: RT Nidhi(R)(M), [facility] Flatwork Catcher: RT Demi(R)(M)(BD), [facility]
--- NOTE | 2020-09-11 14:39 | Operative Report (OR) ---
DATE OF OPERATION: 09/11/2020 NAME OF OPERATION: Right breast lumpectomy. PREOPERATIVE DIAGNOSIS: Ductal carcinoma in situ, right breast. POSTOPERATIVE DIAGNOSIS: Ductal carcinoma in situ, right breast. STAFF SURGEON: Tyler Jean MD. REHAB THERAPIST: HARRISON Driscoll. ANESTHESIA: General. DESCRIPTION OF PROCEDURE: The patient was brought in the operating room and placed on the operating table in supine position. Her right breast was prepped and draped in usual fashion. She had 2 needles placed at the [facility] in the lateral right breast. My food and beverage assistant helped with prepping, draping, removal of the breast tissue and closure of the wound. Incision was made around the needles anteriorly toward the areola carrying dissection down deeply around the needles. The tissue was then placed into the Faxitron. It was marked prior to that with the 2 needles lateral, plain suture anterior and a short silk suture medial, which was retroareolar. I took additional tissue medial/inferior/retroareolar with a plain suture anterior, silk suture inferior and methylene blue new margin. I also took additional inferior/posterior tissue down to the muscle, which was marked with methylene blue new margin. The tissue specimen contained the calcifications and the marker. We did place clips at the muscle level near where the biopsy had been taken. I closed deep tissue using 2-0 plain suture and then the skin using subcuticular 4-0 Monocryl with Steri-Strips. Dressing applied and the patient was transferred to recovery room in stable condition. I attest to the content of the Intraoperative Record and any orders documented therein. Any exception s are noted below.
[2020-09-11] MEDS: CLINDAMYCIN 600 MG in DEXTROSE 5% 50 ML IV SCH (18:24)
[2020-09-12] MEDS: CLINDAMYCIN 600 MG in DEXTROSE 5% 50 ML IV SCH ×2 (02:31→10:55)
[2020-09-12] MEDS ORDERED: HEPARIN SOD 5,000 UNIT/0.5 ML VIAL SQ SCH (09:00)
--- NOTE | 2020-09-12 09:37 | Discharge Summary (DS) ---
PRINCIPAL DIAGNOSIS: Ductal carcinoma in situ, right breast. PROCEDURES: The patient underwent right breast lumpectomy. HISTORY OF PRESENT ILLNESS: The patient is a 79-year-old female with diagnosis of DCIS of the right breast. She was brought into the hospital on 09/11/2020 where she underwent a lumpectomy, which she tolerated very well. She has done well overnight and is felt stable for discharge home today to be followed in the surgical clinic within 1-2 weeks.
== END 2020-09-12 14:00 | disposition home or self-care (01) | DRG 583 ==
LOC: ASU 08:07 → 3N 11:12

== ENCOUNTER 2020-10-03 07:51 | Observation (INO) ==
--- NOTE | 2020-09-28 10:45 | Anesthesiology Consultation ---
Date of Service September 28, 2020 Assessment & Plan (1) Encounter for pre-operative examination: Chart Review Chart Review: Acceptable Risk for Surgery (pending preop Covid testing results ) and Patient NOT seen in Pre Admission Testing Per nursing assessment 09/28/2020, patient resides in [facility]. Wears mask, uses good hand hygiene and socially distances. Travels to [facility] for medical appts. No known Covid positive contacts or Covid related symptoms. No known Covid infection in the past 90 days. Preop Covid testing scheduled 09/29/[address] [facility]= will await results. Right breast lumpectomy 09/11/2020 = done under [facility] with LMA #4 (I gel). Atraumatic x1. History Surgery Operation Date: 10/03/20 12:00 Proposed Procedures p Right Axillary Monitor Lymph Node Biopsy - Tyler Jean MD, FACS Height/Weight Height: 5 ft 8.5 in Weight: 83.007 kg Allergies Allergy/AdvReac Type Severity Reaction Status Date / Time Penicillins Allergy Intermediate HIVES Verified 09/28/20 09:56 adhesive AdvReac Intermediate SKIN Verified 09/28/20 09:56 IRRITATION NSAIDS (Non-Steroidal AdvReac Mild BLURRED Verified 09/28/20 09:56 Anti-Inflamma VISION-ALEVE,ADVIL Medications Home Medications Medication Instructions Recorded Confirmed Last Taken Centrum Chewables 2 tab PO QAM 10/23/19 09/28/20 09/10/20 08:00 Calcium 600 with Vitamin D3 2 tab PO QAM 06/30/20 09/28/20 09/10/20 08:00 albuterol sulfate [Ventolin HFA] 2 inh INHALATION Q6H PRN #8.5 g 07/02/20 09/28/20 Unknown codeine-guaifenesin 5 ml PO Q6H PRN #120 ml 07/02/20 09/28/20 Unknown Past Medical History Medical History (Updated 09/28/20 @ 10:48 by Edna Stallings PA-C) Acute hypoxemic respiratory failure 06/30/20 to [facility] ED. [place] 2/2 viral illness. Discharged to home with steroid taper and ABX Bronchitis VIRAL BRONCHITIS -06/2020, resolved. Has not needed home albuterol. Cardiac murmur HX. No murmur noted on discharge exam 07/02/20 [facility]. Osteoarthritis of left hip Postmenopausal status Prolapse of female pelvic organs Sebaceous cyst Past Family History Family History Mother Myocardial infarction Father TIA (transient ischemic attack) never confirmed that this was TIA vs CVA Cancer Grandmother Heart disease Other Family history non-contributory Denies family history of Ovarian cancer Prostate cancer Breast cancer Colorectal cancer Past Surgical History Surgical History History of appendectomy History of colonoscopy X 2 History of hysterectomy supracervical hyst/bso/sacrocolpexy/perineorrhaphy - per Dr Gaona's note in allscripts, done 12/09, Dr YESENIA Zamora, [facility] [place] History of total hip arthroplasty LEFT 2018 S/P hernia repair incisional hernia Dr. [place] S/P lumpectomy, right breast (09/11/20) Right breast lumpectomy. Social History Smoking Status: Never smoker Do You Dip or Chew Tobacco: No Hx Alcohol Use: No Alcohol type: wine alcohol intake frequency: holidays/special occasions only Hx Substance Use: No Lab Results Anesthesia Preop Results Results Anesthesia Widget: WBC 5.08 K/uL (4.8-10.8) 09/07/20 Hgb 14.0 g/dL (12.0-16.0) 09/07/20 Hct 42.1 % (37-47) 09/07/20 Plt 186 K/uL (130-400) 09/07/20 Na 141 mmol/L (136-145) 09/07/20 K 4.0 mmol/L (3.5-5.1) 09/07/20 Cl 108 mmol/L (98-107) H 09/07/20 CO2 30 mmol/L (21-32) 09/07/20 BUN 12 mg/dl (7-18) 09/07/20 Creat 0.82 mg/dl (0.6-1.2) 09/07/20 Glucose Level 150 mg/dl (70-99) H 09/07/20 Testing Electrocardiogram Date: 06/30/20 Findings: + NSR @ (96bpm) Possible LAE. Chest X-Ray Date: 06/30/20 IMPRESSION: No acute cardiopulmonary findings. No change in appearance of the chest. Echocardiogram Date: 12/22/18 EF: 60-65% LV Function: normal RWMA: + none Other Findings: no LVH Valvular Disease: + MR (Mild) Borderline left atrial enlargement. Other Testing Chest CTA 06/30/20= No pulmonary emboli. Bronchial wall thickening suggestive of bronchitis or reactive airway disease. No pleural effusion, adenopathy or airspace consolidation to suggest pneumonia. Numerous scattered low suspicion bilateral solid pulmonary nodules measuring up to 4 mm, possibly on an infectious or inflammatory basis. Follow-up guidelines provided below. 4 mm nodule of the left upper lobe is stable from 2018 compatible with benign etiology. Small hiatal hernia. Carotid doppler 12/21/18= No hemodynamically significant stenosis seen within the carotid arteries.
[~2020-10-03 07:51] MED LIST changes: -CLINDAMYCIN 900 MG in DEXTROSE 5% 50 ML IV SCH; +ceFAZolin 2000MG 2,000 MG/15 ML SYR IV SCH
--- NOTE | 2020-10-03 09:05 | History & Physical Bridge Note ---
Date of Service October 03, 2020 History & Physical Bridge Note I have examined the patient, reviewed the History & Physical and in the interval since the performance of the History & Physical I have noted the following changes of clinical significance: no changes noted
[2020-10-03] MEDS ORDERED: ATROPINE SULFATE 0.1 MG/ML 10ML SYR IV PRN (11:49)
[2020-10-03] MEDS ORDERED: ONDANSETRON INJ 2 MG/ML 2 ML VIAL IV PRN ×2 (11:49→15:06)
[2020-10-03] MEDS ORDERED: fentaNYL citrate 100 MCG/2 ML VIAL IV PRN (11:49)
[2020-10-03] MEDS ORDERED: ePHEDrine sulfate 50 MG/ML AMP IV PRN (11:49)
[2020-10-03] MEDS ORDERED: ISOSULFAN BLUE 10 MG/ML VIAL 5 ML ONE (12:26)
[2020-10-03] MEDS ORDERED: BUPIVACAINE 0.5 % 5 MG/1 ML MPF 30ML VIAL ONE (12:26)
[2020-10-03] MEDS ORDERED: ONDANSETRON INJ 2 MG/ML 2 ML VIAL ONE (12:27)
[2020-10-03] MEDS ORDERED: MIDAZOLAM HCL 1 MG/ML 2ML VIAL ONE (12:27)
[2020-10-03] MEDS ORDERED: PROPOFOL IV EMULSION 10 MG/ML 20 ML VIAL IV ONE (12:27)
[2020-10-03] MEDS ORDERED: LIDOCAINE 2% 2 ML VIAL/AMP(20MG/ML) INFIL ONE (12:27)
[2020-10-03] MEDS ORDERED: fentaNYL citrate 100 MCG/2 ML VIAL ONE (12:27)
[2020-10-03] MEDS ORDERED: ePHEDrine sulfate 50 MG/ML SYR ONE (12:56)
[2020-10-03] MEDS ORDERED: DEXAMETHASONE SOD INJ 4 MG/ML VIAL ONE (12:56)
[2020-10-03] MEDS ORDERED: ACETAMINOPHEN 1000 MG/100 ML IV IV ONE (13:27)
--- NOTE | 2020-10-03 13:48 | Post Operative Brief Note ---
PG Immediate Post Op with CF Date of Surgery October 03, 2020 Pre & Post Diagnosis Operation Date: 10/03/20 11:20 Pre-Op Diagnosis: Ductal carcinoma in situ Right Breast Post-Op Diagnosis: Ductal carcinoma in situ Right Breast I identified the patient and participated in the time-out.: Yes Procedure Operation Date: 10/03/20 11:20 Actual Procedures p Right Axillary [place] Lymph Node Biopsy(Right) - Tyler Jean MD, FACS Surgeon Tyler Jean MD, FACS Flat Bed Operator nurses Estimated Blood Loss 5 Findings Consistent with Post-Op Diagnosis Specimens Specimen Description: Frozen Section 1.) right sentinel lymph nodes for frozen section Permanent A.) additional right axillary tissue
[2020-10-03] MEDS ORDERED: ACETAMINOPHEN 1,000 MG/100 ML VIAL IV ONE (13:49)
--- NOTE | 2020-10-03 14:50 | Operative Report (OR) ---
DATE OF OPERATION: 10/03/2020 NAME OF OPERATION: Right sentinel lymph node biopsy. PREOPERATIVE DIAGNOSIS: Right breast cancer. POSTOPERATIVE DIAGNOSIS: Right breast cancer. STAFF SURGEON: Tyler Jean MD. ANESTHESIA: General. DESCRIPTION OF PROCEDURE: The patient was brought in the operating room and placed on the operating table in supine position. Prior to prepping, we gave her some blue dye in the breast for her lymphoscintigraphy. Her right breast and axilla were prepped and draped in usual fashion. Using the Neoprobe, we were able to make an incision in the right axilla using 0.5% plain Marcaine to anesthetize the skin, carrying dissection down deep, identifying the blue lymph node and 2 other nodes. Two were sent for frozen section and found to be negative. The other was sent for permanent section. After appropriate hemostasis, deep tissue reapproximated using 2-0 plain suture and then the skin reapproximated using 4-0 nylon suture. The patient was transferred to recovery room in stable condition. I attest to the content of the Intraoperative Record and any orders documented therein. Any exception s are noted below.
--- NOTE | 2020-10-03 14:50 | Anesthesiology Progress Note ---
Date of Service October 03, 2020 Anesthesia Post Procedure Vital Signs Vital Signs: Temp Pulse Pulse Resp BP Pulse Ox 10/03/20 14:40 70 14 129/69 96 10/03/20 14:30 36.7 C 72 14 142/75 H 96 10/03/20 14:20 72 14 134/75 98 10/03/20 14:10 73 16 135/77 97 10/03/20 14:03 36.6 C 80 18 144/88 H 98 10/03/20 09:24 36.8 C 71 18 144/90 H 98 Transfer of Care Handoff Completed per policy Notes Mental Status: alert / awake / arousable and participated in evaluation Patient Amnestic to Procedure: Yes Nausea / Vomiting: adequately controlled Pain: adequately controlled Airway Patency, RR, SpO2: stable & adequate BP & HR: stable & adequate Hydration State: stable & adequate Anesthetic Complications: no major complications apparent and Pt Satisfied with anesthetic care
[2020-10-03] MEDS ORDERED: MoRPHine SULFATE 2 MG/ML CARP IV PRN (15:06)
[2020-10-03] MEDS ORDERED: PROMETHAZINE HCL 12.5 MG in SODIUM CHLORIDE 0.9% 50 ML IV PRN (15:06)
[2020-10-03] MEDS ORDERED: HYDROCODONE/ACETAMOPHEN 5/325MG TAB PO PRN ×2 (15:06)
[2020-10-03] MEDS ORDERED: ACETAMINOPHEN 325 MG TAB PO PRN (15:06)
[2020-10-03] MEDS ORDERED: ALBUTEROL HFA 8 GM INHALER INH PRN (15:06)
--- NOTE | 2020-10-03 15:34 | Hospitalist Consultation ---
Date of Consultation October 03, 2020 Assessment & Plan (1) DCIS (ductal carcinoma in situ): s/p sentinel node biopsy today. Doing well post operatively Thank you for the consult. Medicine team will sign off at this time as no acute medical issues. Please call if need for further assistance. History of Present Illness Reason for Consultation: Medical Management Attending Physician: Tyler Jean MD, FACS History of Present Illness Tena Ann is a 79 year old female admission for right sentinel lymph node biopsy performed today by Dr. Jean. Recently performed right breast lumpectomy on 09/11/2020. She has no chronic medical conditions. Doing well post operatively. Allergies Allergy/AdvReac Type Severity Reaction Status Date / Time Penicillins Allergy Intermediate HIVES Verified 10/03/20 09:18 adhesive AdvReac Intermediate SKIN Verified 10/03/20 09:18 IRRITATION NSAIDS (Non-Steroidal AdvReac Mild BLURRED Verified 10/03/20 09:18 Anti-Inflamma VISION-ALEVE,ADVIL Home Medications Medication Instructions Recorded Confirmed Type Centrum Chewables 2 tab PO QAM 10/23/19 10/03/20 History Calcium 600 with Vitamin D3 2 tab PO QAM 06/30/20 10/03/20 History albuterol sulfate [Ventolin HFA] 2 inh INHALATION Q6H PRN #8.5 g 07/02/20 10/03/20 Rx codeine-guaifenesin 5 ml PO Q6H PRN #120 ml 07/02/20 10/03/20 Rx Patient History Medical History Acute hypoxemic respiratory failure 06/30/20 to [facility]. [place] 2/2 viral illness. Discharged to home with steroid taper and ABX Bronchitis VIRAL BRONCHITIS -06/2020, resolved. Has not needed home albuterol. Cardiac murmur HX. No murmur noted on discharge exam 07/02/20 [facility]. Osteoarthritis of left hip Postmenopausal status Prolapse of female pelvic organs Sebaceous cyst Surgical History History of appendectomy History of colonoscopy X 2 History of hysterectomy supracervical hyst/bso/sacrocolpexy/perineorrhaphy - per Dr Gaona's note in allscripts, done 12/09, Dr YESENIA Zamora, [facility] [place] 11/2018 History of total hip arthroplasty LEFT 2018 S/P hernia repair incisional hernia Dr. Greene S/P lumpectomy, right breast (09/11/20) Right breast lumpectomy. Family History Mother Myocardial infarction Father TIA (transient ischemic attack) never confirmed that this was TIA vs CVA Cancer Grandmother Heart disease Other Family history non-contributory Denies family history of Ovarian cancer Prostate cancer Breast cancer Colorectal cancer Social History Smoking Status: Never smoker Second Hand Exposure: Yes; Do You Dip or Chew Tobacco: No; Hx Alcohol Use: No Hx Substance Use: No Preferred Language: Luxembourgish Communication Ability: Effective Visual Impairment: No Limitations Hearing Ability: Normal [place] Carver Required: No Beliefs That Will Affect Care: None marital status: / Current Living Situation: Alone Current Living Situation Comment: Widowedx 5 years, closest child works at [employer]. Lives in [employer] log current occupational status: retired How many Children do You have: 4 How many Children do You have Comment: 2 girls, 2 boys Other Information That Helps Us Care for You: No Feels Safe at Home: Yes Safety Concerns: Feels Safe At This Time Dental Care, Regularly: Yes Physical Activity Frequency: Daily Physical Activity Frequency Comment: Gardening Assistive Devices: None Review of Systems Review of Systems: All systems reviewed & are unremarkable except as noted in HPI & below Physical Exam Constitutional: WD/WN, vitals as above Eyes: + anicteric sclerae; normal pupil size ENMT: external ear and nose normal, oropharynx normal Respiratory: normal respiratory effort, lungs clear to auscultation Cardiovascular: RRR, no murmur, no edema Gastrointestinal (Abdomen): normal bowel sounds, soft, nontender, no hepatosplenomegaly Musculoskeletal: no cyanosis or clubbing, extremities motor strength 5/5 Skin: no rashes, warm and dry Neurologic: moves all extremities and awake; not confused Psychiatric: A+Ox3, euthymic affect Results & Data Results & Data ([facility]) Vital Signs (Past 12 Hours) Vital Signs Temp Pulse Pulse Resp BP Pulse Ox 10/03/20 14:40 70 14 129/69 96 10/03/20 14:30 36.7 C 72 14 142/75 H 96 10/03/20 14:20 72 14 134/75 98 10/03/20 14:10 73 16 135/77 97 10/03/20 14:03 36.6 C 80 18 144/88 H 98 10/03/20 09:24 36.8 C 71 18 144/90 H 98 PG Care Time/CCT Total # of Minutes Spent Total Time Spent with Patient: Total time spent is greater than 50% in coordination of care (as documented) at patient's floor/unit and/or counseling patient: Coding Level of Care Code 28983 Inpt Consult Level 3 Diagnoses DCIS (ductal carcinoma in situ) D05.10
[2020-10-03] MEDS: SODIUM CHLORIDE 0.9% 1000ML 1,000 ML IV SCH (16:58)
[2020-10-04] MEDS: SODIUM CHLORIDE 0.9% 1000ML 1,000 ML IV SCH (11:35)
--- NOTE | 2020-10-07 14:49 | Discharge Summary (DS) ---
PRINCIPAL DIAGNOSIS: Right breast cancer. PROCEDURE: The patient underwent a sentinel lymph node biopsy of the right side. HISTORY OF PRESENT ILLNESS: The patient is a 79-year-old female with an invasive carcinoma of the right breast in need of sentinel lymph node biopsy. She was brought into the hospital on 10/03/2020 where she underwent right sentinel lymph node biopsy. She was kept overnight and felt stable for discharge on 10/04/2020 to be followed in the surgical clinic within 1 week.
--- NOTE | 2020-10-16 10:53 | Discharge Summary (DS) ---
DATE OF ADMISSION: 10/03/2020 DATE OF DISCHARGE: 10/04/2020 PRINCIPAL DIAGNOSIS: Breast cancer. PROCEDURE: The patient underwent right sentinel lymph node biopsy. HISTORY OF PRESENT ILLNESS: The patient is a 79-year-old female who was admitted with a history of b reast cancer, for right sentinel lymph node biopsy. She was taken to the operating room on where she underwent right sentinel lymph node biopsy, which she tolerated well. She was kept overn ight and did well and was felt stable for discharge on 10/04/2020 to be followed in the surgical clin ic within 1-2 weeks. Job ID: [id number]
== END 2020-10-04 14:29 | disposition home or self-care (01) ==
LOC: ASU 07:51 → 3N 07:51

== ENCOUNTER 2021-07-13 09:40 | Observation (INO) ==
--- NOTE | 2021-05-28 09:31 | PAT Medication Instructions ---
Medication Instructions Date of Service May 28, 2021 Home Medications eojwjurc-[id number] 8 mg-folic ac 400 mcg-vit K 10 mcg chew tablet (Centrum Chewables) 2 tab PO QAM anastrozole 1 mg tablet 1 mg PO QPM calcium carbonate 500 mg calcium (1,250 mg) tablet (Calcium 500) 500 mg PO QAM cholecalciferol (vitamin D3) 10 mcg (400 unit) chewable tablet (Vitamin D3) 10 mcg PO QAM ASK your prescriber and surgeon anastrozole 1 mg tablet 1 mg PO QPM DO NOT take the morning of surgery [id number]-[id number] 8 mg-folic ac 400 mcg-vit K 10 mcg chew tablet (Centrum Chewables) 2 tab PO QAM calcium carbonate 500 mg calcium (1,250 mg) tablet (Calcium 500) 500 mg PO QAM cholecalciferol (vitamin D3) 10 mcg (400 unit) chewable tablet (Vitamin D3) 10 mcg PO QAM Other Notes NOTHING TO EAT OR DRINK AFTER MIDNIGHT. If you have any questions please call us at [phone] or [phone] or [phone] or [phone]
--- NOTE | 2021-06-06 11:50 | Anesthesiology Consultation ---
Date of Service June 06, 2021 Assessment & Plan (1) Encounter for pre-operative examination: Chart Review Chart Review: Acceptable Risk for Surgery (pending preop Covid testing results ) and Patient seen in Pre Admission Testing -Pt states she lives alone- going to rehab after surgery- due to age, limited activity and living alone- patient is NOT acceptable Same Day Joint candidate Per PAT appt on 06/06/21, patient denies any recent travel or large group activities. No known Covid positive exposures or Covid related symptoms. No known Covid infection in the past 90 days. Pt is vaccinated for Covid. Preop Covid testing scheduled 07/11/21= will await results. Educated on importance of self quarantining, social distancing and wearing mask in public for the patient one week prior to surgery and after Covid testing done Right Axillary [place] Lymph Note Biopsy 10/03/20= Done under [facility] with LMA #4. Atraumatic, attempt x 1. Teaching & Discussion Pre-Anesthesia Teaching/Discussion Notes: Instructed NPO after midnight before surgery,except medications with 15 cc of water. Medication instructions provided according to the [facility] guidelines. History Surgery Operation Date: 07/13/21 13:00 Proposed Procedures p Right Total Hip Arthroplasty Anterior - Jesus Eller, Height/Weight Height: 5 ft 9 in Weight: 82.3 kg Allergies Allergy/AdvReac Type Severity Reaction Status Date / Time Penicillins Allergy Intermediate HIVES Verified 05/22/21 13:14 adhesive AdvReac Intermediate SKIN Verified 05/22/21 13:14 IRRITATION NSAIDS (Non-Steroidal AdvReac Mild BLURRED Verified 05/22/21 13:14 Anti-Inflamma VISION-ALEVE,ADVIL Medications Home Medications Medication Instructions Recorded Confirmed Last Taken kvogctbk-fcbaepcs-qeje 8 mg-folic 2 tab PO QAM 10/23/19 05/22/21 10/02/20 07:00 ac 400 mcg-vit K 10 mcg chew tablet (Centrum Chewables) anastrozole 1 mg tablet 1 mg PO QPM 11/30/20 05/22/21 Unknown calcium carbonate 500 mg calcium 500 mg PO QAM 01/02/21 05/22/21 Unknown (1,250 mg) tablet (Calcium 500) cholecalciferol (vitamin D3) 10 10 mcg PO QAM 05/22/21 05/22/21 Unknown mcg (400 unit) chewable tablet (Vitamin D3) tramadol 50 mg tablet 50 mg PO Q8H PRN #30 tab 06/06/21 06/06/21 Unknown Past Medical History Medical History (Updated 06/06/21 @ 14:34 by Edna Stallings PA-C) Cardiac murmur HX- in 2018 per patient. No murmur noted on PAT exam 06/06/21 H/o Lyme disease Primary invasive malignant neoplasm of right female breast Dx'ed 07/2020- s/p right lumpectomy (08/2020), and axillary sentinel LN biopsy (09/2020) No chemo/XRT. On Anastrozole Prolapse of female pelvic organs Secondary to surgical complications from hysterectomy per patient Increased urinary frequency Exercise / Class Metabolic Activity III < 4 Walking/Shop/Light housework (limited activity secondary to hip pain- no chest pain or SOB with short distance, flat surface ambulation ) Past Family History Family History Mother , 84yo Myocardial infarction Dementia Father , 73yo Cancer Pt's daughter states it was pancreatic cancer Brother Lung cancer Brother COPD (chronic obstructive pulmonary disease) Brother Deep vein thrombosis Lyme disease Son No problems noted. Son Congenital heart defect Daughter Breast cancer Daughter Breast cancer Skin cancer Other Family history non-contributory Denies family history of Ovarian cancer Prostate cancer Colorectal cancer Past Surgical History Surgical History History of appendectomy History of colonoscopy X [address] YESENIA Zamora, [facility] [place] 11/2018 History of surgery Right sentinel lymph node biopsy 10/03/20 History of total hip arthroplasty LEFT 2018 Hx of tonsillectomy S/P hernia repair incisional hernia Dr. Greene S/P lumpectomy, right breast (09/11/20) Right breast lumpectomy on 09/11/20 Dr. Jean-NO RIGHT ARM RESTRICTION PER PT Past Anesthesia History No Hx of Anesthesia Complications and No Family Hx of Anesthesia Complications History of PONV No Hx of PONV and No Hx of Motion Sickness Social History Smoking Status: Never smoker Do You Dip or Chew Tobacco: No Hx Alcohol Use: No Hx Substance Use: No Review of Systems Pt lives alone- no known snoring or apnea. Patient denies chest pain, shortness of breath,, reflux, cough, wheezing, palpitations. No hx of seizures, stroke, [place]. No hx of blood clots or blood transfusions Physical Exam Vital Signs VITALS BP 104/60 (manually) P 83 TEMP 98.2 SP02 94% RESP 16 Constitutional no acute distress ENMT Mouth: + small oral opening; no TMJ clicking Thyromental Distance: < 3.5 Finger Breadths (2.5) Mallampati Class: III Permanent front right tooth Broken molars Missing molars Neck + limited neck extension Respiratory normal respiratory effort; no respiratory distress Auscultation: lungs clear to auscultation bilaterally; no wheezes Cardiovascular Rate/Rhythm: regular rate and regular rhythm Heart Sounds: no murmur Vessels: no carotid bruit Musculoskeletal Spine: no pain with cervical ROM Extremities: extremities normal to inspection Psychiatric Orientation: alert Lab Results Anesthesia Preop Results Results Anesthesia Widget: WBC 6.25 K/uL (4.8-10.8) 06/06/21 Hgb 13.8 g/dL (12.0-16.0) 06/06/21 Hct 42.0 % (37-47) 06/06/21 Plt 209 K/uL (130-400) 06/06/21 Na 138 mmol/L (136-145) 06/06/21 K 4.1 mmol/L (3.5-5.1) 06/06/21 Cl 102 mmol/L (98-107) 06/06/21 CO2 33 mmol/L (21-32) H 06/06/21 BUN 17 mg/dl (6-23) 06/06/21 Creat 0.72 mg/dl (0.6-1.2) 06/06/21 Glucose Level 81 mg/dl (70-99(Fasting)) 06/06/21 PT 10.3 Seconds (9.0-12.0) 06/06/21 PTT 24.0 Seconds (21.0-31.0) 06/06/21 INR 1.0 (0.9-1.1) 06/06/21 Blood Type A Positive 06/06/21 Antibody Screen NEGATIVE 06/06/21 Testing Electrocardiogram Date: 06/06/21 Findings: + NSR @ (74bpm) and + no change from (June 30, 2020 per cardio ) Right atrial enlargement Chest X-Ray Date: 06/06/21 Findings: + NAD Echocardiogram Date: 12/22/18 EF: 60-65% LV Function: normal RWMA: + none Other Findings: no LVH Valvular Disease: + MR (Mild) Borderline left atrial enlargement. Other Testing Holter monitor 01/17/19= normal. No symptoms. No arrhythmia. Carotid doppler 12/21/18= No hemodynamically significant stenosis seen within the carotid arteries. Brain MRI 12/21/18= No acute intracranial abnormality. Minimal age-related atrophy and chronic small vessel change
--- NOTE | 2021-07-12 07:21 | History & Physical Report ---
Date of Service July 12, 2021 Assessment & Plan (1) Osteoarthritis of right hip: We will proceed with a right anterior total hip arthroplasty. Postoperatively she will be started on aspirin for DVT prophylaxis and kept overnight in the hospital for postoperative medical management. She plans to go to [facility] upon discharge. History of Present Illness Chief Complaint: Osteoarthritis of the right hip. Primary Care Provider: Jc You MD Tena is a pleasant 80-year-old female who I did a left hip replacement on in 2016. Her left hip is done well. Unfortunate she has been ill with more right hip pain. X-rays and clinical examination been diagnostic for arthritis of the right hip. After failing conservative treatment, she elected proceed with a right total hip arthroplasty. Allergies Allergy/AdvReac Type Severity Reaction Status Date / Time Penicillins Allergy Intermediate HIVES Verified 05/22/21 13:14 adhesive AdvReac Intermediate SKIN Verified 05/22/21 13:14 IRRITATION NSAIDS (Non-Steroidal AdvReac Mild BLURRED Verified 05/22/21 13:14 Anti-Inflamma VISION-ALEVE,ADVIL Home Medications Medication Instructions Recorded Confirmed Type geiiixmq-iwjlmtpp-nnsd 8 mg-folic 2 tab PO QAM 10/23/19 05/22/21 History ac 400 mcg-vit K 10 mcg chew tablet (Centrum Chewables) anastrozole 1 mg tablet 1 mg PO QPM 11/30/20 05/22/21 History calcium carbonate 500 mg calcium 500 mg PO QAM 01/02/21 05/22/21 History (1,250 mg) tablet (Calcium 500) cholecalciferol (vitamin D3) 10 10 mcg PO QAM 05/22/21 05/22/21 History mcg (400 unit) chewable tablet (Vitamin D3) tramadol 50 mg tablet 50 mg PO Q8H PRN #30 tab 06/06/21 06/06/21 Rx Past Med/Surg History Medical History Cardiac murmur HX- in 2018 per patient. No murmur noted on PAT exam 06/06/21 H/o Lyme disease Primary invasive malignant neoplasm of right female breast Dx'ed 07/2020- s/p right lumpectomy (08/2020), and axillary sentinel LN biopsy (09/2020) No chemo/XRT. On Anastrozole Prolapse of female pelvic organs Secondary to surgical complications from hysterectomy per patient Increased urinary frequency Surgical History History of appendectomy History of colonoscopy X [address] [place] [facility] [place] History of surgery Right sentinel lymph node biopsy 10/03/20 History of total hip arthroplasty LEFT 2018 Hx of tonsillectomy S/P hernia repair incisional hernia Dr. Greene S/P lumpectomy, right breast (09/11/20) Right breast lumpectomy on 09/11/20 Dr. Jean-NO RIGHT ARM RESTRICTION PER PT Family History Mother , 84yo Myocardial infarction Dementia Father , 73yo Cancer Pt's daughter states it was pancreatic cancer Brother Lung cancer Brother COPD (chronic obstructive pulmonary disease) Brother Deep vein thrombosis Lyme disease Son No problems noted. Son Congenital heart defect Daughter Breast cancer Daughter Breast cancer Skin cancer Other Family history non-contributory Denies family history of Ovarian cancer Prostate cancer Colorectal cancer Social History Smoking Status: Never smoker Second Hand Exposure: No; Hx Alcohol Use: No Hx Substance Use: No Preferred Language: Palauan Communication Ability: Effective Visual Impairment: No Limitations Hearing Ability: Normal Button Maker Required: No Beliefs That Will Affect Care: None marital status: / Current Living Situation: Alone Current Living Situation Comment: Widowedx 5 years-RECENTLY MOVED TO [facility] FROM SON [place]HA[place] 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 Physical Exam On physical examination of the right hip, she ambulates with a cane. She is decreased range of motion. She has pain with forced internal and external rotation. Although her pain is located in the groin. Constitutional WD/WN, vitals as above Eyes PERRL, conjunctivae normal, anicteric sclerae ENMT external ear and nose normal, oropharynx normal Neck trachea midline, no thyromegaly Respiratory normal respiratory effort Cardiovascular RRR, no murmur, no edema Gastrointestinal (Abdomen) normal bowel sounds, soft, nontender, no hepatosplenomegaly Psychiatric A+Ox3, euthymic affect Results & Data Results & Data Laboratory Results . Diagnostic Findings X-rays of the right hip show advanced osteoarthritis with joint space narrowing, osteophyte formation, and hlcd-vk-[id number] articulation. PG Care Time/CCT Total # of Minutes Spent Total Time Spent with Patient: Total time spent is greater than 50% in coordination of care (as documented) at patient's floor/unit and/or counseling patient: Coding Level of Care Code None Diagnoses Osteoarthritis of right hip M16.11
[~2021-07-13 09:40] MED LIST changes: +ACETAMINOPHEN 500 MG TAB PO SCH; +BUPIVACAINE 0.5 % 5 MG/1 ML PF 10ML VIAL ONE; +FAMOTIDINE 20 MG TAB PO SCH; +GABAPENTIN 300 MG CAP PO SCH; +Ketorolac (*for OR use only*) 30 MG, dexAMETHasone 4 MG, KETAMINE HCL (**OR use only) 1... INFIL SCH; -LR 15ML/HR IV SCH; +LR 500ML BOLUS, THEN 15ML/HR IV SCH; +LR 60ML/HR IV SCH; +TRANEXAMIC ACID 1,000 MG **IV Intra-op IV SCH; +TRANEXAMIC ACID 1,000 MG **IV Pre-op IV SCH; -ceFAZolin 2000MG 2,000 MG/15 ML SYR IV SCH; +dexAMETHasone 4 MG TAB PO SCH
[2021-07-13] MEDS ORDERED: ceFAZolin 2,000 MG/15 ML IV PUSH IV ONE (10:23)
[2021-07-13] MEDS ORDERED: ceFAZolin 2000MG 2,000 MG/15 ML SYR IV ONE (10:28)
[2021-07-13] MEDS ORDERED: Nursing to Pharmacy Communication SCH (10:30)
--- NOTE | 2021-07-13 10:39 | History & Physical Bridge Note ---
Date of Service July 13, 2021 History & Physical Bridge Note I have examined the patient, reviewed the History & Physical and in the interval since the performance of the History & Physical I have noted the following changes of clinical significance: no changes noted
[2021-07-13] MEDS ORDERED: ORTHO JOINT ANESTHETIC ONE (11:17)
[2021-07-13] MEDS ORDERED: LIDOCAINE 2% 2 ML VIAL/AMP(20MG/ML) INFIL ONE (11:18)
[2021-07-13] MEDS ORDERED: PROPOFOL IV EMULSION 10 MG/ML 20 ML VIAL IV ONE (11:18)
[2021-07-13] MEDS ORDERED: fentaNYL citrate 100 MCG/2 ML VIAL IV PRN (11:18)
[2021-07-13] MEDS ORDERED: ATROPINE SULFATE 0.1 MG/ML 10ML SYR IV PRN (11:18)
[2021-07-13] MEDS ORDERED: MIDAZOLAM HCL 1 MG/ML 2ML VIAL ONE (11:18)
[2021-07-13] MEDS ORDERED: ePHEDrine sulfate 50 MG/ML AMP IV PRN (11:18)
[2021-07-13] MEDS ORDERED: ONDANSETRON INJ 2 MG/ML 2 ML VIAL IV PRN ×2 (11:18→16:16)
--- NOTE | 2021-07-13 13:14 | Operative Report ---
PG Post Operative Report Pre & Post Diagnosis Operation Date: 07/13/21 11:40 Pre-Op Diagnosis: Right Hip Degenerative Joint Disease Post-Op Diagnosis: Right Hip Degenerative Joint Disease I identified the patient and participated in the time-out.: Yes Procedure Operation Date: 07/13/21 11:40 Actual Procedures p Right Total Hip Arthroplasty Anterior(Right) - Jesus Eller DO Surgeon Jesus Eller DO Psychiatry Instructor Jesus Norton PAC Estimated Blood Loss 250 Findings Consistent with Post-Op Diagnosis Specimens Right femoral head Complications none Disposition Disposition: Recovery Room Indications Tena is a pleasant 80-year-old female who is been doing with chronic increasing right hip and groin pain. X-rays and clinical examination have been diagnostic for advanced arthritis of the right hip. After failing conservative treatment, she elected proceed with a right anterior total hip arthroplasty. Description of Procedure Implants used I used a [employer]immer[employer] total hip arthroplasty system with a size 2 high offset Avenir Complete stem, a 50 mm G7 cup with a 25mm screw, an E1 polyethylene liner, a 36 mm ceramic head with a -3.5 neck. Tena arrived at the hospital for the above procedure. She was seen in the preoperative holding area and the operative extremity was identified and signed. She was given a spinal anesthetic, a preoperative antibiotic, and TXA. She was then taken back to the operating room and laid on the table in the supine position. She was given basic sedation. The operative leg was secured to a Puristst leg positioner. The hip was then prepped and draped in sterile fashion. A timeout was done and the patient and the operative extremity was properly identified. An anterior approach was used. Dissection was taken down through the fascia and the tensor muscle belly was retracted laterally and the rectus was retracted medially. The circumflex vessels were identified and ligated. The capsule was then incised and tagged for later repair. The femoral neck was then cut and the femoral head was removed. The acetabulum was exposed. Time was spent doing a complete circumferential labral release. Sequential reaming of the acetabulum up to a size 49 reamer was done. Final reamings were done under fluoroscopy to ensure appropriate version. A Biomet 50mm G7 cup was then impacted into place. A single 25 mm screw was placed. The E1 polyethylene liner was then snapped into place. Surrounding soft tissues were then injected with 100 cc of an orthopedic pain control cocktail. The proximal femur was then exposed. Sequential broaching up to a size 2 broach was done. Off that broach a size 36 head with a -3.5neck was trialed. The hip was reduced and fluoroscopic images showed anatomic alignment of the implants in acceptable length. The broach was removed. The final size 2 high offset Avenir Complete stem was then impacted into place. A ceramic 36mm head with a -3.5 neck was then impacted onto the stem and the hip was reduced. Final fluoroscopic images showed anatomic alignment of the hip. The capsule was then closed with #1 Vicryl suture. A dilute betadyne lavage was then done for 3 minutes. The joint was then irrigated with normal saline solution. The fascia was closed with #1 PDS suture. Skin was closed with 2-0 Vicryl, chong, and a Silverlon dressing. She was then transferred to a hospital bed and taken to the post anesthesia care unit in stable condition. She tolerated the procedure well. Jesus Norton PA-C, was present for the entire procedure. He was critical for patient positioning, prepping, draping, retraction exposure, wound closure and application of sterile dressing. I attest to the content of the Intraoperative Record and any orders documented therein. Any exceptions are noted below.
[2021-07-13] MEDS ORDERED: PHENYLEPHRINE 100MCG/ML 5ML SYR ONE (13:16)
[2021-07-13] MEDS ORDERED: ePHEDrine sulfate 50 MG/ML AMP ONE (13:16)
--- NOTE | 2021-07-13 14:08 | XRay Report ---
XR hip 1V RT w pelvis CLINICAL HISTORY: IN PACU - A/P PELVIS and LATERAL HIP TECHNIQUE: 2 views of the right hip and single frontal view of the pelvis were obtained. Comparison: Comparison is made to left hip radiographs 02/16/2018 FINDINGS: Patient is status post total hip arthroplasty with expected postsurgical changes including soft tissu e swelling, subcutaneous emphysema, and surgical staple placement. No periarticular lucency or hardwa re fracture is seen. The alignment is anatomic. Left total hip arthroplasty is unchanged. No soft ti ssue abnormality is seen. IMPRESSION: Expected postoperative appearance status post placement of total hip arthroplasty. ACT 112: Negative or not required by law. Electronically signed by: Marcos Norman M.D. 07/13/2021 2:06 PM
--- NOTE | 2021-07-13 14:10 | Fluoroscopy Report ---
INTRAOPERATIVE RADIOGRAPHS CLINICAL HISTORY: Right hip arthroplasty. Fluoroscopy time: 20 seconds. FINDINGS: 2 spot fluoroscopic views the right hip are presented. The first image shows surgical absen ce of the femoral head with the acetabular cup in place. The second image shows a right hip arthropla sty in near anatomic alignment. There is no evidence of acute fracture on these fluoroscopic views. IMPRESSION: Intraoperative images from a right hip arthroplasty procedure as above. Electronically signed by: Jaspreet Powell M.D. 07/13/2021 2:09 PM
--- NOTE | 2021-07-13 14:29 | Anesthesiology Progress Note ---
Date of Service July 13, 2021 Anesthesia Post Procedure Vital Signs Vital Signs: Temp Pulse Pulse Resp BP Pulse Ox 07/13/21 14:20 68 19 116/71 100 07/13/21 14:10 65 15 115/70 100 07/13/21 14:00 73 20 115/67 100 07/13/21 13:50 68 19 106/64 100 07/13/21 13:40 73 20 114/66 100 07/13/21 13:34 98.2 F 72 19 102/65 99 07/13/21 10:08 98.1 F 72 18 149/89 H 98 Transfer of Care Handoff Completed per policy Notes Mental Status: alert / awake / arousable and participated in evaluation Patient Amnestic to Procedure: Yes Nausea / Vomiting: adequately controlled Pain: adequately controlled Airway Patency, RR, SpO2: stable & adequate BP & HR: stable & adequate Hydration State: stable & adequate Neuraxial Anesthesia: was administered and sensory block is resolving Anesthetic Complications: no major complications apparent and Pt Satisfied with anesthetic care
[2021-07-13] MEDS ORDERED: MAGNESIUM HYDROXIDE SUSP 30 ML UDC PO PRN (16:16)
[2021-07-13] MEDS ORDERED: METOCLOPRAMIDE HCL INJ 5 MG/ML 2 ML VIAL IV PRN (16:16)
[2021-07-13] MEDS ORDERED: bisacodyL 10 MG SUPP PR PRN (16:16)
[2021-07-13] MEDS ORDERED: NALOXONE HCL 0.4 MG/1 ML VIAL/CARP IV PRN (16:16)
[2021-07-13] MEDS ORDERED: oxyCODONE HCL IR 5 MG TAB (IMMEDIATE RELEASE) PO PRN (16:16)
[2021-07-13] MEDS ORDERED: HYDROmorphone INJ 0.5 MG/0.5 ML SYR IV PRN (16:16)
[2021-07-13] MEDS: SODIUM CHLORIDE 0.9% 1000ML 1,000 ML IV SCH (16:50)
[2021-07-13] MEDS: KETOROLAC TROMETHAMINE 15 MG/ML VIAL IV SCH ×2 (16:52→21:38)
[2021-07-13] MEDS: ACETAMINOPHEN 500 MG TAB PO SCH ×2 (16:53→21:37)
[2021-07-13] MEDS: ceFAZolin 2000MG 2,000 MG/15 ML SYR IV SCH (18:36)
[2021-07-13] MEDS: DOCUSATE SODIUM 100 MG CAP PO SCH (21:37)
[2021-07-13] MEDS: ANASTROZOLE 1 MG TAB PO SCH (21:37)
[2021-07-13] MEDS: SENNA 8.6 MG TAB PO SCH (21:37)
[2021-07-13] MEDS: ASPIRIN 81 MG ECTAB PO SCH (21:37)
[2021-07-14] MEDS: SODIUM CHLORIDE 0.9% 1000ML 1,000 ML IV SCH (02:55)
[2021-07-14] MEDS: ceFAZolin 2000MG 2,000 MG/15 ML SYR IV SCH (03:56)
[2021-07-14] MEDS: KETOROLAC TROMETHAMINE 15 MG/ML VIAL IV SCH ×4 (03:59→22:00)
[2021-07-14] MEDS: ACETAMINOPHEN 500 MG TAB PO SCH ×3 (05:23→21:59)
[2021-07-14] MEDS: MULTIVITAMIN TAB PO SCH (07:27)
[2021-07-14] MEDS: ASPIRIN 81 MG ECTAB PO SCH ×2 (07:27→07:31)
[2021-07-14] MEDS: DOCUSATE SODIUM 100 MG CAP PO SCH ×2 (07:30→20:04)
[2021-07-14] MEDS ORDERED: dexAMETHasone 4 MG TAB PO SCH (08:00)
--- NOTE | 2021-07-14 11:19 | Orthopedic Progress Note ---
Date of Service July 14, 2021 Assessment & Plan (1) Status post right hip replacement: Overall, she is doing very well. She will be seen by physical therapy today for ambulation and range of motion exercises. She is on Aspirin for DVT prophylaxis. We will plan discharge to [facility] either tomorrow or Friday. Alberto Madsen was seen and examined at bedside this morning. She is doing well. She has been ambulating to the bathroom. Her pain is controlled. She has no complaints . Review of Systems All systems reviewed & are unremarkable except as noted in HPI & below. Physical Exam On physical exam of her right hip, the dressing is clean and dry. Her leg lengths are equal. She is nv intact . Results & Data Results & Data Laboratory Results . Diagnostic Findings . PG Care Time/CCT Total # of Minutes Spent Total Time Spent with Patient: Total time spent is greater than 50% in coordination of care (as documented) at patient's floor/unit and/or counseling patient: Coding Level of Care Code 93067 Post Operative Follow-Up Diagnoses Status post right hip replacement Z96.641
[2021-07-14] MEDS: ANASTROZOLE 1 MG TAB PO SCH (20:04)
[2021-07-14] MEDS: SENNA 8.6 MG TAB PO SCH (20:05)
[2021-07-15] MEDS: KETOROLAC TROMETHAMINE 15 MG/ML VIAL IV SCH ×2 (04:07→12:39)
[2021-07-15] MEDS: ACETAMINOPHEN 500 MG TAB PO SCH ×2 (05:27→13:01)
--- NOTE | 2021-07-15 07:49 | Orthopedic Progress Note ---
Date of Service July 15, 2021 Assessment & Plan (1) Status post right hip replacement: Overall she is doing fairly well. She denies any much pain in the right hip. She will be seen by physical therapy today for ambulation and range of motion exercises. She can be discharged to rehab later today if a bed becomes available. She is on aspirin for DVT prophylaxis. Alberto Madsen was seen and examined at bedside this morning. Overall she is doing fairly well. She was able to participate well yesterday with physical therapy. She is not having too much pain in her right hip. She has no new complaints. Review of Systems All systems reviewed & are unremarkable except as noted in HPI & below. Physical Exam On physical examination of the right hip, the dressing is clean and dry. Her leg lengths are equal. She is active dorsiflexion plantarflexion of her right ankle.. Results & Data Results & Data Laboratory Results . Diagnostic Findings . PG Care Time/CCT Total # of Minutes Spent Total Time Spent with Patient: Total time spent is greater than 50% in coordination of care (as documented) at patient's floor/unit and/or counseling patient: Coding Level of Care Code 24322 Post Operative Follow-Up Diagnoses Status post right hip replacement Z96.641
[2021-07-15] MEDS: DOCUSATE SODIUM 100 MG CAP PO SCH (08:21)
[2021-07-15] MEDS: ASPIRIN 81 MG ECTAB PO SCH (08:21)
[2021-07-15] MEDS: MULTIVITAMIN TAB PO SCH (08:22)
== END 2021-07-15 14:01 ==
LOC: 3W 09:40 → ASU 09:40